=== PATIENT | female | born 1985 | race Two or more races ===

== ENCOUNTER 2023-02-23 21:02 | Outpatient (REF) | payer MEDICAID, SELFPAY ==
[2023-02-27 17:07] LABS: HPV Aptima Negative (Negative); Pap IG (Image Guided) Note (.)
== END 2023-02-23 21:03 | disposition home or self-care (01) ==
LOC: LAB 21:02
PROVIDERS: Visit Provider Obstetrics & Gynecology
DX: R87.610 Atypical squamous cells of undetermined significance on cytologic smear of cervix (ASC-US) (principal)
CPT/HCPCS: 87624

== ENCOUNTER 2023-08-31 20:19 | Outpatient (REF) | payer MEDICAID, SELFPAY ==
[2023-09-04 11:10] LABS: Age Gdln ACOG Testing Note (.); HPV Aptima Negative (Negative); IGP, Aptima HPV, rfx 16/18,45 Note (.)
== END 2023-08-31 20:20 | disposition home or self-care (01) ==
LOC: LAB 20:19
PROVIDERS: Visit Provider Obstetrics & Gynecology
DX: Z01.419 Encounter for gynecological examination (general) (routine) without abnormal findings (principal)
CPT/HCPCS: 87624; G0145

== ENCOUNTER 2024-02-29 20:30 | Outpatient (REF) | payer MEDICAID, SELFPAY ==
--- OUTSIDE RECORDS SUMMARY | 2024-02-29 20:33 | XMS_ITS | CCD ---
Author Organization [facility] Inform ion [facility] Care Team Providers Care Small Engine Trainer Name Role Phone JULIETA ., DR BROWN Admitting Unavailable JULIETA ., DR BROWN Attending Unavailable NADERER, DR MELISSA Mitchell Primary Care Unavailable JULIETA ., DR BROWN Consulting Unavailable NADERER, DR MELISSA Mitchell Admitting Unavailable NADERER, DR MELISSA Mitchell Attending Unavailable NADERER, DR MELISSA Mitchell Primary Care Unavailable NADERER, DR MELISSA Mitchell Consulting Unavailable JULIETA, KEVIN Attending Unavailable JULIETA, KEVIN Attending Unavailable Problems Problem Classification Problem Date Documented Da te Episodic/Chronic Other screening for suspected conditions (not mental disorders or infectious disease) (4 sources) Encounter for screening for malignant neoplasm of cervix; Translations: [ENC SCREENING MALIG NEOPLASM CERV] Onset: 08-25-2022 Episodic Results Test Name Value Interpretation Reference Range Facility CBC AUTO DIFFon 10-17-2022 BASO # 0.0 103/ul Normal 0.0-0.1 [facility] Comment on above: Performed By: #### C BC #### [facility] [address] [address] [address] Tal Harley Basophils/100 WBC (Bld) 0.6 % Normal 0.2-2.0 [facility] Comment on above: Performed By: #### C BC #### [facility] [address] [address] [address] Tal Harley EO # 0.0 103/ul Normal 0.0-0.7 [facility] Comment on above: Performed By: #### C BC #### [facility] [address] [address] [address] Tal Harley Eosinophils/100 WBC (Bld) 0.9 % Normal 0.9-7.0 [facility] Comment on above: Performed By: #### C BC #### [facility] [address] [place] [address] Dr. Tal Harley Erythrocyte distribution width (RBC) [Ratio] 12.2 % Normal 11.0-15.0 [facility] Comment on above: Performed By: #### C BC #### [facility] [address] [place] [address] Dr. Tal Harley Hematocrit (Bld) [Volume fraction] 42.3 % Normal 36.0-48.0 [facility] Comment on above: Performed By: #### C BC #### [facility] [address] [place] [address] Dr. Tal Harley Hemoglobin (Bld) [Mass/Vol] 14.0 g/dL Normal 12.0-16.0 [facility] Comment on above: Performed By: #### C BC #### [facility] [address] [place] [address] Dr. Tal Harley IG # 0.01 10e3/ul Normal 0.00-0.03 [facility] Comment on above: Performed By: #### C BC #### [facility] [address] [place] [address] Dr. Tal Harley IG % 0.2 % Normal 0.0-0.5 [facility] Comment on above: Performed By: #### C BC #### [facility] [address] [place] [address] Dr. Tal Harley LYMPH # 1.7 103/ul Normal 1.2-3.8 [facility] Comment on above: Performed By: #### C BC #### [facility] [address] [place] [address] Dr. Tal Harley Lymphocytes/100 WBC (Bld) 36.2 % Normal 20.5-60.0 [facility] Comment on above: Performed By: #### C BC #### [facility] [address] [place] [address] Dr. Tal Harley MANUAL DIFF REQ NO Normal [facility] Comment on above: Performed By: #### C BC #### [facility] [address] [place] [address] Dr. Tal Harley MCH (RBC) [Entitic mass] 31.7 pg Normal 26.7-34.0 [facility] Comment on above: Performed By: #### C BC #### [facility] [address] [place] [address] Dr. Tal Harley MCHC (RBC) [Mass/Vol] 33.1 g/dL Normal 29.9-35.2 [facility] Comment on above: Performed By: #### C BC #### [facility] [address] [place] [address] Dr. Tal Harley MCV (RBC) [Entitic vol] 95.7 fL Normal 81.0-99.0 [facility] Comment on above: Performed By: #### C BC #### [facility] [address] [place] [address] Dr. Tal Harley MONO # 0.4 103/ul Normal 0.3-0.8 [facility] Comment on above: Performed By: #### C BC #### [facility] [address] [place] [address] Dr. Tal Harley Monocytes/100 WBC (Bld) 8.9 % Normal 1.7-12.0 [facility] Comment on above: Performed By: #### C BC #### [facility] [address] [place] [address] Dr. Tal Harley NEUT # 2.5 103/ul Normal 1.4-6.5 [facility] Comment on above: Performed By: #### C BC #### [facility] [address] [place] [address] Dr. Tal Harley Neutrophils/100 WBC (Bld) 53.2 % Normal 43.0-75.0 [facility] Comment on above: Performed By: #### C BC #### [facility] [address] [place] [address] Dr. Tal Harley Platelet mean volume (Bld) [Entitic vol] 10.7 fL Normal 9.5-13.5 [facility] Comment on above: Performed By: #### C BC #### [facility] [address] [address] [address] Tal Harley PLT 236 103/ul Normal 150-450 [facility] Comment on above: Performed By: #### C BC #### [facility] [address] [address] [address] Tal Harley RBC 4.42 106/ul Normal 4.20-5.40 [facility] Comment on above: Performed By: #### C BC #### [facility] [address] [place] [address] Dr. Tal Harley WBC 4.7 103/ul Normal 4.0-11.0 [facility] Comment on above: Performed By: #### C BC #### [facility] [address] [place] [address] Dr. Tal Harley GLYCOHEMOGLOBIN A1Con 2022 ADA RECOMMENDATION SEE BELOW Normal [facility] Comment on above: Result Comment: ADA RECOMMENDED LIMIT 4.0 - 6.0 ADA THERAPEUTIC TARGET < 7.0 ACTION SUGGESTED > 7.0 Performed By: #### A 1C #### [facility] [address] [place] [address] Dr. Tal Harley Glucose [Mass/Vol] 94 mg/dL Normal [facility] Comment on above: Performed By: #### A 1C #### [facility] [address] [place] [address] Dr. Tal Harley HbA1c (Bld) [Mass fraction] 4.9 % Normal 4.5-6.2 [facility] Comment on above: Performed By: #### A 1C #### [facility] [address] [place] [address] Dr. Tal Harley LIPID PROFILEon 10-17-2022 CHOL-HDL RATIO NORM SEE BELOW Normal [facility] Comment on above: Result Comment: 3.3 - 4.4 LOW RISK 4.4 - 7.1 AVERAGE RISK 7.1 - 11.0 MODERATE RISK >11.0 HIGH RISK Performed By: #### L IVER, LIPID, BMP, TSH #### [facility] [address] [place], [place] [id number] Dr. Tal Harley Cholesterol [Mass/Vol] 240 mg/dL Critically high <=200 [facility] Comment on above: Performed By: #### L IVER, LIPID, BMP, TSH #### [facility] [address] [address] [address] Tal Harley Cholesterol in HDL [Mass/Vol] 113 mg/dL Critically high 40-60 [facility] Comment on above: Performed By: #### L IVER, LIPID, BMP, TSH #### [facility] [address] [address] [address] Tal Harley Cholesterol in LDL [Mass/Vol] 114.4 mg/dL Normal [facility] Comment on above: Performed By: #### L IVER, LIPID, BMP, TSH #### [facility] [address] [address] [address] Tal Harley Cholesterol.total/Ch olesterol in HDL [Mass ratio] 2.1 {ratio} Normal [facility] Comment on above: Performed By: #### L IVER, LIPID, BMP, TSH #### [facility] [address] [address] [address] Tal Harley HDL NORMAL > or = 60 mg/dl - LO W CARDIOVASCULAR RISK <40 mg/dl - HIGH CARDIOVASCULAR RISK Normal [facility] Comment on above: Performed By: #### L IVER, LIPID, BMP, TSH #### [facility] [address] [address] [address] Tal Harley LDL CALC NORMAL SEE BELOW Normal [facility] Comment on above: Result Comment: <100 mg/dl OPTIMAL 100 - 129 mg/dl NEAR OR ABOVE OPTIMAL 130 - 159 mg/dl BORDERLINE HIGH 160 - 189 mg/dl HIGH >190 mg/dl VERY HIGH Performed By: #### L IVER, LIPID, BMP, TSH #### [facility] [address] [address] [address] Tal Harley Triglyceride [Mass/Vol] 63 mg/dL Normal <=150 [facility] Comment on above: Performed By: #### L IVER, LIPID, BMP, TSH #### [facility] [address] [address] [address] Tal Harley VLDL CALC 12.6 mg/dL Normal [facility] Comment on above: Performed By: #### L IVER, LIPID, BMP, TSH #### [facility] [address] [address] [address] Tal Harley LIVER PROFILEon 10-17-2022 Albumin [Mass/Vol] 4.4 g/dL Normal 3.4-5.0 [facility] Comment on above: Performed By: #### L IVER, LIPID, BMP, TSH #### [facility] [address] [address] [address] Tal Harley Albumin/Globulin [Mass ratio] 1.4 {ratio} Normal [facility] Comment on above: Performed By: #### L IVER, LIPID, BMP, TSH #### [facility] [address] [place] [address] Dr. Tal Harley ALP [Catalytic activity/Vol] 63 U/L Normal 46-116 [facility] Comment on above: Performed By: #### L IVER, LIPID, BMP, TSH #### [facility] [address] [address] [address] Tal Harley ALT [Catalytic activity/Vol] 20 U/L Normal 14-59 [facility] Comment on above: Performed By: #### L IVER, LIPID, BMP, TSH #### [facility] [address] [address] [address] Tal Harley AST [Catalytic activity/Vol] 15 U/L Normal 15-37 [facility] Comment on above: Performed By: #### L IVER, LIPID, BMP, TSH #### [facility] [address] [address] [address] Tal Harley BILI, CONJUGATED 0.1 mg/dL Normal 0.0-0.2 [facility] Comment on above: Performed By: #### L IVER, LIPID, BMP, TSH #### [facility] [address] [address] [address] Tal Harley Bilirubin [Mass/Vol] 0.5 mg/dL Normal 0.2-1.0 [facility] Comment on above: Performed By: #### L IVER, LIPID, BMP, TSH #### [facility] [address] [address] [address] Tal Harley Globulin (S) [Mass/Vol] 3.2 g/dL Normal [facility] Comment on above: Performed By: #### L IVER, LIPID, BMP, TSH #### [facility] [address] [place] [address] Dr. Tal Harley Protein [Mass/Vol] 7.6 g/dL Normal 6.4-8.2 [facility] Comment on above: Performed By: #### L IVER, LIPID, BMP, TSH #### [facility] [address] [place] [address] Dr. Tal Harley PROF CHEM 8 (BAS METB)on Anion gap [Moles/Vol] 11.5 mmol/L Normal [facility] Comment on above: Performed By: #### L IVER, LIPID, BMP, TSH #### [facility] [address] [place] [address] Dr. Tal Harley Calcium [Mass/Vol] 9.1 mg/dL Normal 8.5-10.1 [facility] Comment on above: Performed By: #### L IVER, LIPID, BMP, TSH #### [facility] [address] [place] [address] Dr. Tal Harley Chloride [Moles/Vol] 102 mmol/L Normal 98-107 [facility] Comment on above: Performed By: #### L IVER, LIPID, BMP, TSH #### [facility] [address] [place] [address] Dr. Tal Harley CO2 [Moles/Vol] 27.5 mmol/L Normal 21.0-32.0 [facility] Comment on above: Performed By: #### L IVER, LIPID, BMP, TSH #### [facility] [address] [place] [address] Dr. Tal Harley Creatinine [Mass/Vol] 0.67 mg/dL Normal 0.55-1.02 [facility] Comment on above: Performed By: #### L IVER, LIPID, BMP, TSH #### [facility] [address] [address] [address] Tal Harley EGFR-AF MOROCCAN >60 Normal >=60 [facility] Comment on above: Performed By: #### L IVER, LIPID, BMP, TSH #### [facility] [address] [address] [address] Tal Harley EGFR-NON AF MOROCCAN >60 Normal >=60 [facility] Comment on above: Performed By: #### L IVER, LIPID, BMP, TSH #### [facility] [address] [address] [address] Tal Harley Glucose [Mass/Vol] 105 mg/dL Normal 74-106 [facility] Comment on above: Performed By: #### L IVER, LIPID, BMP, TSH #### [facility] [address] [place] [address] Dr. Tal Harley Potassium [Moles/Vol] 4.0 mmol/L Normal 3.5-5.1 [facility] Comment on above: Performed By: #### L IVER, LIPID, BMP, TSH #### [facility] [address] [address] [address] Tal Harley Sodium [Moles/Vol] 137 mmol/L Normal 136-145 [facility] Comment on above: Performed By: #### L IVER, LIPID, BMP, TSH #### [facility] [address] [address] [address] Tal Harley Urea nitrogen [Mass/Vol] 9.0 mg/dL Normal 7.0-18.0 [facility] Comment on above: Performed By: #### L IVER, LIPID, BMP, TSH #### [facility] [address] [address] [address] Tal Harley Urea nitrogen/Creatinine [Mass ratio] 13.4 mg/mg Normal [facility] Comment on above: Performed By: #### L IVER, LIPID, BMP, TSH #### [facility] [address] [address] [address] Tal Harley TSHon 10-17-2022 TSH 0.626 uIU/mL Normal 0.358-3.740 [facility] Comment on above: Performed By: #### L IVER, LIPID, BMP, TSH #### [facility] [address] [address] [address] Tal Harley PAP ACOG PANEL 2: 30 to 65on 09-02-2022 . . Normal [facility] Comment on above: Result Comment: Perf ormed at: [facility] Performed By: #### [id number] #### [facility] [address] [address] [address] Tal Harley Age Gdln ACOG Testing 30-65 Normal [facility] Comment on above: Performed By: #### [id number] #### [facility] [address] [place] [address] Dr. Tal Harley DIAGNOSIS: Comment Abnormal [facility] Comment on above: Result Comment: EPIT HELIAL CELL ABNORMALITY. ATYPICAL SQUAMOUS CELLS OF UNDETERMINED SIGNIFICANCE (ASC-US). TRICHOMONAS VAGINALIS IS PRESENT. Performed at: [facility] Performed By: #### [id number] #### [facility] [address] [address] [address] Tal Harley Electronically signed by: Comment Normal [facility] Comment on above: Result Comment: Mehrdad Kendall MD (Charles), Pathologist Performed at: [facility] Performed By: #### [id number] #### [facility] [address] [address] [address] Tal Harley HPV Aptima Negative Normal Negative [facility] Comment on above: Result Comment: This nucleic acid amplification test detects fourteen high-risk HPV types (16,18,31,33,35,39,45,51,52,56,58,59,66,68) without differentiation. Performed at: =G Performed By: #### [id number] #### [facility] [address] [place] [address] Dr. Tal Harley HPV Genotype Reflex Comment Normal [facility] Comment on above: Result Comment: Crit eria not met, HPV Genotype not performed. Performed at: [facility] Performed By: #### [id number] #### [facility] [address] [place] [address] Dr. Tal Harley Methodology: Comment [facility] Comment on above: Result Comment: This liquid based ThinPrep(R) pap test was screened with the use of an image guided system. Performed at: WB Performed By: #### [id number] #### [facility] [address] [place] [address] Dr. Tal Harley Note: Comment [facility] Comment on above: Result Comment: The Pap smear is a screening test designed to aid in the detection of premalignant and malignant conditions of the uterine cervix. It is not a diagnostic procedure and should not be used as the sole means of detecting cervical cancer. Both false-positive and false-negative reports do occur. . Performed at: WB Performed By: #### [id number] #### [facility] [address] [place] [address] Dr. Tal Harley Pathologist Provided ICD10 Comment [facility] Comment on above: Result Comment: R87. 610, R87.5 Performed at: [facility] Performed By: #### [id number] #### [facility] [address] [place] [address] Dr. Tal Harley Performed by: Comment Normal [facility] Comment on above: Result Comment: Aj Obregon, Tile Fitter (ASCP) Performed at: [facility] Performed By: #### [id number] #### [facility] [address] [place] [address] Dr. Tal Harley Specimen adequacy: Comment Normal [facility] Comment on above: Result Comment: Sati sfactory for evaluation. Endocervical and/or squamous metaplastic cells (endocervical component) are present. Performed at: [facility] Performed By: #### [id number] #### [facility] [address] [place] [address] Dr. Tal Harley Urine Cultureon 11-06-2020 Bacteria identified Cx Nom (U) Reason for Exam Urinary frequency Urine ORGANISM: Klebsiella pneumoniae (O:KLEPNE) [place] Count >100,000 Aerobic VIKTORIYA Charge (NUC86) ---- SUSCEPTIBILITY --- ORGANISM: O:YELENAPNE ANTIBIOTIC INTERPRETATION VIKTORIYA Amikacin S <16 Ampicillin R >16 Ampicillin/Sulbactam S <8/4 Aztreonam S <4 Cefazolin S <2 Cefepime S <2 Ceftazidime S <1 Ceftazidime/Avibactam S <8 Ceftriaxone S <1 Ciprofloxacin S <1 Ertapenem S <0.5 Gentamicin S <4 Levofloxacin S <2 Meropenem S <1 Nitrofurantoin I 64 Piperacillin/Tazobact am S <16 Tetracycline S <4 Tigecycline S <2 Tobramycin S <4 Trimethoprim/Sulfamet hoxazole S <2/38 S = SUSCEPTIBLE I = INTERMEDIATE R = RESISTANT BLANK = DATA NOT AVAILABLE, OR DRUG NOT ADVISABLE OR TESTED R* = RESISTANCE DUE TO EXTENDED SPECTRUM BETA-LACTAMASES ESBL = EXTENDED SPECTRUM BETA-LACTAMASE TFG = THYMIDINE-DEPENDENT STRAIN VIDA = BETA-LACTAMASE POSITIVE IB = INDUCIBLE BETA-LACTAMASE. APPEARS IN PLACE OF 'S' WITH SPECIES KNOWN TO POSSESS INDUCIBLE BETA-LACTAMASES. POTENTIALLY THEY MAY BECOME RESISTANT TO ALL B-LACTAM DRUGS. PERFORMED BY: [place] [id number] PATHOLOGIST LOGISTICS TECHNICIAN MEE RICHARD M.D[facility] Comment on above: Performed By: #### C UU #### [address] Encounters Encounter Date Encounter Type Care Provider Facility Start: 02-29-2024 End: 02-29-2024 ambulatory KEVIN JULIETA Not Available Start: 08-31-2023 End: 08-31-2023 ambulatory KEVIN JULIETA Not Available Start: 10-26-2022 Encounter for genera l adult medical examination without abnormal findings DR MELISSA US [facility] Start: 10-17-2022 End: 10-18-[address] MELISSA US Facility: Start: 10-17-2022 End: 10-18-2022 Encounter for general adult medical examination without abnormal findings DR MELISSA US Facility:[facility] Start: 08-25-2022 End: 08-25-[address] KEVIN RENDON . Facility:[facility] Payers Date Payer Category Payer Medicaid [id number] 1985 Unknown [id number] 2.16.84 [id number] 1985 Unknown [id number] 2.16.84 [id number] 1985 Unknown [id number] 2.16.84 [id number] 1985 Unknown [id number] 2.16.84 [id number] Summary Purpose Family History No Family History Records FoundNo Family History Records FoundNo Family History Records Found Advance Directives No Advanced Directives Records FoundNo Advanced Directives Records FoundNo Advanced Directives Records Found Additional Source Comments INFORMATION SOURCE (unrecogn ized section and content) DATE CREATED AUTHOR 11/12/2020 [facility] DATE CREATED AUTHOR AUTHOR'S ORGANIZ ATION 10/26/2022 [facility] DATE CREATED AUTHOR AUTHOR'S ORGANIZ ATION 02/29/2024 [facility] EPIC FOR RECORDS PERTAINING TO PATIENTS WHO ARE OR HAVE BEEN ENROLLED IN A CHEMICAL DEPENDENCY/SUBSTANCEABUSE PROGRAM, SOME INFORMATION MAY BE OMITTED. This clinical summary was aggregated from multiple sources. Caution should be exercised in using it in the provision of clinical care. This summary normalizes information from multiple sources, and as a consequence, information in this document may materially change the coding, format and clinical context of patient data. In addition, data may be omitted in some cases. CLINICAL DECISIONS SHOULD BE BASED ON THE PRIMARY CLINICAL RECORDS. [employer] provides no warranty or guarantee of the accuracy or completeness of information in this document.
[2024-03-04 17:10] LABS: Age Gdln ACOG Testing Note (.); HPV Aptima Negative (Negative); IGP, Aptima HPV, rfx 16/18,45 Note (.)
== END 2024-02-29 20:31 | disposition home or self-care (01) ==
LOC: LAB 20:30
PROVIDERS: Visit Provider Obstetrics & Gynecology
DX: Z01.419 Encounter for gynecological examination (general) (routine) without abnormal findings (principal)
CPT/HCPCS: 88175

== ENCOUNTER 2024-06-01 13:58 | Outpatient (OUT) | payer MEDICAID, SELFPAY ==
--- OUTSIDE RECORDS SUMMARY | 2024-06-01 14:24 | XMS_ITS | CCD ---
Author Organization [facility] Inform ion [facility] Care Team Providers Care Hand Upper And Bottom Lacer Name Role Phone JULIETA ., DR BROWN [...] 10-17-2022 BASO # 0.0 103/ul Normal 0.0-0.1 [facility] Comment on above: Performed By: #### C BC #### [facility] [address] [address] [address] Tal Harley Basophils/100 WBC (Bld) 0.6 % Normal 0.2-2.0 [facility] Comment on above: Performed By: #### C BC #### [facility] [address] [address] [address] Tal Harley EO # 0.0 103/ul Normal 0.0-0.7 [facility] Comment on above: Performed By: #### C BC #### [facility] [address] [address] [address] Tal Harley Eosinophils/100 WBC (Bld) 0.9 % Normal 0.9-7.0 [facility] Comment on above: Performed By: #### C BC #### [facility] [address] [place] [address] Dr. Tal Harley Erythrocyte distribution width (RBC) [Ratio] 12.2 % Normal 11.0-15.0 [facility] Comment on above: Performed By: #### C BC #### [facility] [address] [place] [address] Dr. Tal Harley Hematocrit (Bld) [Volume fraction] 42.3 % Normal 36.0-48.0 [facility] Comment on above: Performed By: #### C BC #### [facility] [address] [place] [address] Dr. Tal Harley Hemoglobin (Bld) [Mass/Vol] 14.0 g/dL Normal 12.0-16.0 [facility] Comment on above: Performed By: #### C BC #### [facility] [address] [place] [address] Dr. Tal Harley IG # 0.01 10e3/ul Normal 0.00-0.03 [facility] Comment on above: Performed By: #### C BC #### [facility] [address] [place] [address] Dr. Tal Harley IG % 0.2 % Normal 0.0-0.5 [facility] Comment on above: Performed By: #### C BC #### [facility] [address] [place] [address] Dr. Tal Harley LYMPH # 1.7 103/ul Normal 1.2-3.8 [facility] Comment on above: Performed By: #### C BC #### [facility] [address] [place] [address] Dr. Tal Harley Lymphocytes/100 WBC (Bld) 36.2 % Normal 20.5-60.0 [facility] Comment on above: Performed By: #### C BC #### [facility] [address] [place] [address] Dr. Tal Harley MANUAL DIFF REQ NO Normal [facility] Comment on above: Performed By: #### C BC #### [facility] [address] [place] [address] Dr. Tal Harley MCH (RBC) [Entitic mass] 31.7 pg Normal 26.7-34.0 [facility] Comment on above: Performed By: #### C BC #### [facility] [address] [place] [address] Dr. Tal Harley MCHC (RBC) [Mass/Vol] 33.1 g/dL Normal 29.9-35.2 [facility] Comment on above: Performed By: #### C BC #### [facility] [address] [place] [address] Dr. Tal Harley MCV (RBC) [Entitic vol] 95.7 fL Normal 81.0-99.0 [facility] Comment on above: Performed By: #### C BC #### [facility] [address] [place] [address] Dr. Tal Harley MONO # 0.4 103/ul Normal 0.3-0.8 [facility] Comment on above: Performed By: #### C BC #### [facility] [address] [place] [address] Dr. Tal Harley Monocytes/100 WBC (Bld) 8.9 % Normal 1.7-12.0 [facility] Comment on above: Performed By: #### C BC #### [facility] [address] [place] [address] Dr. Tal Harley NEUT # 2.5 103/ul Normal 1.4-6.5 [facility] Comment on above: Performed By: #### C BC #### [facility] [address] [place] [address] Dr. Tal Harley Neutrophils/100 WBC (Bld) 53.2 % Normal 43.0-75.0 [facility] Comment on above: Performed By: #### C BC #### [facility] [address] [place] [address] Dr. Tal Harley Platelet mean volume (Bld) [Entitic vol] 10.7 fL Normal 9.5-13.5 [facility] Comment on above: Performed By: #### C BC #### [facility] [address] [address] [address] Tal Harley PLT 236 103/ul Normal 150-450 [facility] Comment on above: Performed By: #### C BC #### [facility] [address] [address] [address] Tal Harley RBC 4.42 106/ul Normal 4.20-5.40 [facility] Comment on above: Performed By: #### C BC #### [facility] [address] [place] [address] Dr. Tal Harley WBC 4.7 103/ul Normal 4.0-11.0 [facility] Comment on above: Performed By: #### C BC #### [facility] [address] [place] [address] Dr. Tal Harley GLYCOHEMOGLOBIN A1Con 2022 ADA RECOMMENDATION SEE BELOW Normal [facility] Comment on above: Result Comment: ADA RECOMMENDED LIMIT 4.0 - 6.0 ADA THERAPEUTIC TARGET < 7.0 ACTION SUGGESTED > 7.0 Performed By: #### A 1C #### [facility] [address] [place] [address] Dr. Tal Harley Glucose [Mass/Vol] 94 mg/dL Normal [facility] Comment on above: Performed By: #### A 1C #### [facility] [address] [place] [address] Dr. Tal Harley HbA1c (Bld) [Mass fraction] 4.9 % Normal 4.5-6.2 [facility] Comment on above: Performed By: #### A 1C #### [facility] [address] [place] [address] Dr. Tal Harley LIPID PROFILEon 10-17-2022 CHOL-HDL RATIO NORM SEE BELOW Normal [facility] Comment on above: Result Comment: 3.3 - 4.4 LOW RISK 4.4 - 7.1 AVERAGE RISK 7.1 - 11.0 MODERATE RISK >11.0 HIGH RISK Performed By: #### L IVER, LIPID, BMP, TSH #### [facility] [address] [place], [place] [id number] Dr. Tal Harley Cholesterol [Mass/Vol] 240 mg/dL Critically high <=200 [facility] Comment on above: Performed By: #### L IVER, LIPID, BMP, TSH #### [facility] [address] [address] [address] Tal Harley Cholesterol in HDL [Mass/Vol] 113 mg/dL Critically high 40-60 [facility] Comment on above: Performed By: #### L IVER, LIPID, BMP, TSH #### [facility] [address] [address] [address] Tal Harley Cholesterol in LDL [Mass/Vol] 114.4 mg/dL Normal [facility] Comment on above: Performed By: #### L IVER, LIPID, BMP, TSH #### [facility] [address] [address] [address] Tal Harley Cholesterol.total/Ch olesterol in HDL [Mass ratio] 2.1 {ratio} Normal [facility] Comment on above: Performed By: #### L IVER, LIPID, BMP, TSH #### [facility] [address] [address] [address] Tal Harley HDL NORMAL > or = 60 mg/dl - LO W CARDIOVASCULAR RISK <40 mg/dl - HIGH CARDIOVASCULAR RISK Normal [facility] Comment on above: Performed By: #### L IVER, LIPID, BMP, TSH #### [facility] [address] [address] [address] Tal Harley LDL CALC NORMAL SEE BELOW Normal [facility] Comment on above: Result Comment: <100 mg/dl OPTIMAL 100 - 129 mg/dl NEAR OR ABOVE OPTIMAL 130 - 159 mg/dl BORDERLINE HIGH 160 - 189 mg/dl HIGH >190 mg/dl VERY HIGH Performed By: #### L IVER, LIPID, BMP, TSH #### [facility] [address] [address] [address] Tal Harley Triglyceride [Mass/Vol] 63 mg/dL Normal <=150 [facility] Comment on above: Performed By: #### L IVER, LIPID, BMP, TSH #### [facility] [address] [address] [address] Tal Harley VLDL CALC 12.6 mg/dL Normal [facility] Comment on above: Performed By: #### L IVER, LIPID, BMP, TSH #### [facility] [address] [address] [address] Tal Harley LIVER PROFILEon 10-17-2022 Albumin [Mass/Vol] 4.4 g/dL Normal 3.4-5.[address] [facility] Comment on above: Performed By: #### L IVER, LIPID, BMP, TSH #### [facility] [address] [address] [address] Tal Harley Albumin/Globulin [Mass ratio] 1.4 {ratio} Normal [facility] Comment on above: Performed By: #### L IVER, LIPID, BMP, TSH #### [facility] [address] [place] [address] Dr. Tal Harley ALP [Catalytic activity/Vol] 63 U/L Normal 46-116 [facility] Comment on above: Performed By: #### L IVER, LIPID, BMP, TSH #### [facility] [address] [address] [address] Tal Harley ALT [Catalytic activity/Vol] 20 U/L Normal 14-59 [facility] Comment on above: Performed By: #### L IVER, LIPID, BMP, TSH #### [facility] [address] [address] [address] Tal Harley AST [Catalytic activity/Vol] 15 U/L Normal 15-37 [facility] Comment on above: Performed By: #### L IVER, LIPID, BMP, TSH #### [facility] [address] [address] [address] Tal Harley BILI, CONJUGATED 0.1 mg/dL Normal 0.0-0.2 [facility] Comment on above: Performed By: #### L IVER, LIPID, BMP, TSH #### [facility] [address] [address] [address] Tal Harley Bilirubin [Mass/Vol] 0.5 mg/dL Normal 0.2-1.0 [facility] Comment on above: Performed By: #### L IVER, LIPID, BMP, TSH #### [facility] [address] [address] [address] Tal Harley Globulin (S) [Mass/Vol] 3.2 g/dL Normal [facility] Comment on above: Performed By: #### L IVER, LIPID, BMP, TSH #### [facility] [address] [place] [address] Dr. Tal Harley Protein [Mass/Vol] 7.6 g/dL Normal 6.4-8.2 [facility] Comment on above: Performed By: #### L IVER, LIPID, BMP, TSH #### [facility] [address] [place] [address] Dr. Tal Harley PROF CHEM 8 (BAS METB)on Anion gap [Moles/Vol] 11.5 mmol/L Normal [facility] Comment on above: Performed By: #### L IVER, LIPID, BMP, TSH #### [facility] [address] [place] [address] Dr. Tal Harley Calcium [Mass/Vol] 9.1 mg/dL Normal 8.5-10.1 [facility] Comment on above: Performed By: #### L IVER, LIPID, BMP, TSH #### [facility] [address] [place] [address] Dr. Tal Harley Chloride [Moles/Vol] 102 mmol/L Normal 98-107 [facility] Comment on above: Performed By: #### L IVER, LIPID, BMP, TSH #### [facility] [address] [place] [address] Dr. Tal Harley CO2 [Moles/Vol] 27.5 mmol/L Normal 21.0-32.0 [facility] Comment on above: Performed By: #### L IVER, LIPID, BMP, TSH #### [facility] [address] [place] [address] Dr. Tal Harley Creatinine [Mass/Vol] 0.67 mg/dL Normal 0.55-1.02 [facility] Comment on above: Performed By: #### L IVER, LIPID, BMP, TSH #### [facility] [address] [address] [address] Tal Harley EGFR-AF ESTONIAN >60 Normal >=60 [facility] Comment on above: Performed By: #### L IVER, LIPID, BMP, TSH #### [facility] [address] [address] [address] Tal Harley EGFR-NON AF ESTONIAN >60 Normal >=60 [facility] Comment on above: Performed By: #### L IVER, LIPID, BMP, TSH #### [facility] [address] [address] [address] Tal Harley Glucose [Mass/Vol] 105 mg/dL Normal 74-[address] [facility] Comment on above: Performed By: #### L IVER, LIPID, BMP, TSH #### [facility] [address] [place] [address] Dr. Tal Harley Potassium [Moles/Vol] 4.0 mmol/L Normal 3.5-5.1 [facility] Comment on above: Performed By: #### L IVER, LIPID, BMP, TSH #### [facility] [address] [address] [address] Tal Harley Sodium [Moles/Vol] 137 mmol/L Normal 136-[address] [facility] Comment on above: Performed By: #### L IVER, LIPID, BMP, TSH #### [facility] [address] [address] [address] Tal Harley Urea nitrogen [Mass/Vol] 9.0 mg/dL Normal 7.0-18.0 [facility] Comment on above: Performed By: #### L IVER, LIPID, BMP, TSH #### [facility] [address] [address] [address] Tal Harley Urea nitrogen/Creatinine [Mass ratio] 13.4 mg/mg Normal [facility] Comment on above: Performed By: #### L IVER, LIPID, BMP, TSH #### [facility] [address] [address] [address] Tal Harley TSHon 10-17-2022 TSH 0.626 uIU/mL Normal 0.358-3.740 [facility] Comment on above: Performed By: #### L IVER, LIPID, BMP, TSH #### [facility] [address] [address] [address] Tal Harley PAP ACOG PANEL 2: 30 to 65on 09-02-2022 . . Normal [facility] Comment on above: Result Comment: Perf ormed at: [facility] Performed By: #### [id number] #### [facility] [address] [address] [address] Tal Harley Age Gdln ACOG Testing 30-65 Normal [facility] Comment on above: Performed By: #### [id number] #### [facility] [address] [place] [address] Dr. Tal Harley DIAGNOSIS: Comment Abnormal [facility] Comment on above: Result Comment: EPIT HELIAL CELL ABNORMALITY. ATYPICAL SQUAMOUS CELLS OF UNDETERMINED SIGNIFICANCE (ASC-US). TRICHOMONAS VAGINALIS IS PRESENT. Performed at: [facility] Performed By: #### [id number] #### [facility] [address] [address] [address] Tal Harley Electronically signed by: Comment Normal [facility] Comment on above: Result Comment: Mehrdad Kendall MD (Charles), Pathologist Performed at: [facility] Performed By: #### [id number] #### [facility] [address] [address] [address] Tal Harley HPV Aptima Negative Normal Negative [facility] Comment on above: Result Comment: This nucleic acid amplification test detects fourteen high-risk HPV types (16,18,31,33,35,39,45,51,52,56,58,59,66,68) without differentiation. Performed at: =G Performed By: #### [id number] #### [facility] [address] [place] [address] Dr. Tal Harley HPV Genotype Reflex Comment Normal [facility] Comment on above: Result Comment: Crit eria not met, HPV Genotype not performed. Performed at: [facility] Performed By: #### [id number] #### [facility] [address] [place] [address] Dr. Tal Harley Methodology: Comment [facility] Comment on above: Result Comment: This liquid based ThinPrep(R) pap test was screened with the use of an image guided system. Performed at: [facility] Performed By: #### [id number] #### [facility] [address] [place] [address] Dr. Tal Harley Note: Comment [facility] Comment on above: Result Comment: The Pap smear is a screening test designed to aid in the detection of premalignant and malignant conditions of the uterine cervix. It is not a diagnostic procedure and should not be used as the sole means of detecting cervical cancer. Both false-positive and false-negative reports do occur. . Performed at: WB Performed By: #### [id number] #### [facility] [address] [place] [address] Dr. Tal Harley Pathologist Provided ICD10 Comment [facility] Comment on above: Result Comment: R87. 610, R87.5 Performed at: [facility] Performed By: #### [id number] #### [facility] [address] [place] [address] Dr. Tal Harley Performed by: Comment Normal [facility] Comment on above: Result Comment: Aj Obregon, Quarry Supervisor [employer] (ASCP) Performed at: [facility] Performed By: #### [id number] #### [facility] [address] [place] [address] Dr. Tal Harley Specimen adequacy: Comment Normal [facility] Comment on above: Result Comment: Sati sfactory for evaluation. Endocervical and/or squamous metaplastic cells (endocervical component) are present. Performed at: [facility] Performed By: #### 4 [id number] #### [facility] [address] [place] [address] Dr. Tal Harley Urine Cultureon 11-06-2020 Bacteria identified Cx Nom (U) Reason for Exam Urinary frequency Urine ORGANISM: Klebsiella pneumoniae (O:KLEPNE) Mobile Count >100,000 Aerobic VIKTORIYA Charge (NUC86) ---- [...] RESISTANT TO ALL B-LACTAM DRUGS. PERFORMED BY: [place] [address] PATHOLOGIST RADIATION TECHNICIAN MEE RICHARD M.D. [facility] Comment on above: Performed By: #### C UU #### [address] Encounters Encounter Date Encounter Type Care Provider Facility Start: 02-29-2024 End: 02-29-2024 ambulatory KEVIN JULIETA Not Available Start: 08-31-2023 End: 08-31-2023 ambulatory KEVIN JULIETA Not Available Start: 10-26-2022 Encounter for genera l adult medical examination without abnormal findings DR MELISSA US [facility] Start: 10-17-2022 End: 10-18-[address] MELISSA US Facility: Start: 10-17-2022 End: 10-18-2022 Encounter for general adult medical examination without abnormal findings DR MELISSA US Facility:[facility] Start: 08-25-2022 End: 08-25-[address] KEVIN RENDON . Facility:[facility] Payers Date Payer Category Payer Medicaid [id number] 1985 Unknown [id number] [id number] 1985 Unknown [id number] [id number] 1985 Unknown [id number] [id number] 1985 Unknown [id number] [id number] Summary Purpose Family History No Family History Records FoundNo Family History Records FoundNo Family History Records Found Advance Directives No Advanced Directives Records FoundNo Advanced Directives Records FoundNo Advanced Directives Records Found Additional Source Comments INFORMATION SOURCE (unrecogn ized section and content) DATE CREATED AUTHOR 11/12/2020 [facility] DATE CREATED AUTHOR AUTHOR'S ORGANIZ ATION 10/26/2022 [facility] DATE CREATED AUTHOR AUTHOR'S ORGANIZ ATION 02/29/2024 [facility] EPIC FOR RECORDS PERTAINING TO PATIENTS [...] BE BASED ON THE PRIMARY CLINICAL RECORDS. [employer] provides no warranty or guarantee of the accuracy or completeness of information in this document.
[2024-06-01 14:26] LABS: Basophils Percent Auto 0.8 % (0.2-2.0); Eosinophils Absolute Auto 0.1 10^3/uL (0.0-0.7); Hematocrit 39.8 % (36.0-48.0); Hemoglobin 13.2 g/dL (12.0-16.0); Immature Granulocytes Abs Auto 0.01 10^3/uL (0.00-0.03); Immature Granulocytes Pct Auto 0.2 % (0.0-0.5); Lymphocytes Absolute Auto 1.7 10^3/uL (1.2-3.8); Lymphocytes Percent Auto 35.8 % (20.5-60.0); Mean Corpuscular HGB Conc 33.2 g/dL (29.9-35.2); Mean Corpuscular Volume 96.6 fL (81.0-99.0); Mean Platelet Volume 10.4 fL (9.5-13.5); Monocytes Absolute Auto 0.4 10^3/uL (0.3-0.8); Monocytes Percent Auto 8.4 % (1.7-12.0); Neutrophils Absolute Auto 2.6 10^3/uL (1.4-6.5); Neutrophils Percent Auto 53.8 % (43.0-75.0); Platelet Count 228 10^3/uL (150-450); Red Blood Count 4.12 10^6/uL (4.20-5.40); Red Cell Distribution Width 12.1 % (11.0-15.0); White Blood Count 4.9 10^3/uL (4.0-11.0)
[2024-06-01 14:38] LABS: Estimated Average Glucose 108 mg/dL; Glycohemoglobin A1C 5.4 % (4.5-6.2)
[2024-06-01 15:10] LABS: Alanine Aminotransferase 17 U/L (14-59); Albumin Globulin Ratio 1.3; Alkaline Phosphatase 60 U/L (46-116); Aspartate Amino Transferase 16 U/L (15-37); BUN Creatinine Ratio 10.4; Bilirubin Direct 0.1 mg/dL (0.0-0.2); Bilirubin Total 0.6 mg/dL (0.2-1.0); Calcium 9.5 mg/dL (8.5-10.1); Carbon Dioxide 25.8 mmol/L (21.0-32.0); Chloride 105 mmol/L (98-107); Cholesterol 228 mg/dL (<=200); Estimated GFR (African America >60 (>=60 mL/min/1.73m^2); Estimated GFR (Non-African Ame >60 (>=60 mL/min/1.73m^2); Globulin 3.2 g/dL; Glucose 88 mg/dL (74-106); HDL Cholesterol 114 mg/dL (40-60); Potassium 3.8 mmol/L (3.5-5.1); Sodium 141 mmol/L (136-145); Thyroid Stimulating Hormone 0.825 uIU/mL (0.358-3.740); Total Protein 7.2 g/dL (6.4-8.2); Triglycerides 54 mg/dL (<=150); VLDL CHOLESTEROL 10.8 mg/dL
== END 2024-06-01 13:59 | disposition home or self-care (01) ==
LOC: LAB 14:01
PROVIDERS: PCP Family Medicine; Visit Provider Family Medicine
DX: Z00.00 Encounter for general adult medical examination without abnormal findings (principal)
CPT/HCPCS: 36415; 80048; 80061; 80076; 83036; 84443; 85025

== ENCOUNTER 2025-03-01 14:39 | Outpatient (REF) | payer MEDICAID, SELFPAY ==
--- OUTSIDE RECORDS SUMMARY | 2025-03-01 11:00 | XMS_ITS | Encounter Summary ---
Author Organization [facility] Address [address] [place] [address] Care Team Providers Care Tire Layer Name Role Phone Gucci Arthur MD Primary Care Provider [phone] Reason for Visit * Reason Comments Well Women Visit Encounter Details Date Type Department Care Team (Late st Contact Info) Description 03/01/2025 11:00 AM EDT Office Visit [facility] [address] [place] [id number] Scout Berman DO [address] [place] Son, [facility] Well woman exam with routine gynecological exam; Folliculitis Social History Tobacco Use Types Packs/Day Years Used Date Smoking Tobacco: Former Cigarettes Smokeless Tobacco: Never Alcohol Use Standard Drinks/Week Comments Yes 3 (1 standard drink = 0.6 oz pur e alcohol) Occasional alcohol use B1300 Health Literacy Answer Date Recor ded How often do you need to hav e someone help you when you read instructions, pamphlets, or other written material from your doctor or pharmacy? Never 06/01/2024 Social Connection and Isolat ion Panel [NHANES] Answer Date Recorded In a typical week, how many times do you talk on the phone with family, friends, or neighbors? More than three times a week 06/01/2024 How often do you get togethe r with friends or relatives? Patient declined 06/01/2024 How often do you attend [facility] or latter-day services? Never 06/01/2024 Do you belong to any clubs o r organizations such as spiritism groups, unions, fraternal or athletic groups, or school groups? No 06/01/2024 How often do you attend meet ings of the clubs or organizations you belong to? Never 06/01/2024 Are you , , di vorced, , never , or living with a partner? Never 06/01/2024 AUDIT-C Answer Date Recorded Q1: How often do you have a drink containing alc ohol? 2-4 times a month 06/01/2024 Q2: How many drinks containi ng alcohol do you have on a typical day when you are drinking? 1 or 2 06/01/2024 Q3: How often do you have si x or more drinks on one occasion? Never 06/01/2024 Overall Financial Resource Strain (CARDIA) Answe r Date Recorded How hard is it for you to pa y for the very basics like food, housing, medical care, and heating? Patient declined 06/01/2024 [facility] - Occupational Stress Questionnaire Answer Date Recorded Do you feel stress - tense, restless, nervous, or anxious, or unable to sleep at night because your mind is troubled all the time - these days? Very much 06/01/2024 Exercise Vital Sign Answer Date Recorde d On average, how many days pe r week do you engage in moderate to strenuous exercise (like a brisk walk)? 5 days 06/01/2024 On average, how many minutes do you engage in exercise at this level? 20 min 06/01/2024 Hunger Vital Sign Answer Date Recorded Within the past 12 months, y ou worried that your food would run out before you got the money to buy more. Patient declined Within the past 12 months, t he food you bought just didn't last and you didn't have money to get more. Patient declined PRAPARE - Transportation Answer Date Re corded Lack of Transportation (Medical) Not on file 06/01/2024 In the past 12 months, has l ack of transportation kept you from meetings, work, or from getting things needed for daily living? No 06/01/2024 Housing Stability Vital Sign Answer Cassius e Recorded In the last 12 months, was t here a time when you were not able to pay the mortgage or rent on time? Yes 06/01/2024 Number of Times Moved in the Last Year Not on fi le 06/01/2024 At any time in the past 12 m [facility], were you homeless or living in a retirement (including now)? No 06/01/2024 Comments No Sex and Gender Information Value Date Recorded Sex Assigned at Female 02/16/2023 8:45 AM EDT Legal Sex Female 11:47 PM EDT Gender Identity Female 02/16/2023 8:45 AM EDT Sexual Orientation Not on file documented as of this encounter Last Filed Vital Signs Vital Sign Reading Time Taken Comments Blood Pressure 100/68 03/01/2025 10:55 AM EDT Pulse - - Temperature - - Respiratory Rate - - Oxygen Saturation - - Inhaled Oxygen Concentration - - Weight 63.1 kg (139 lb 1.9 oz) 03/01/2025 10:55 AM EDT Height - - Body Mass Index 25.45 07/15/2024 10:33 AM EST documented in this encounter Plan of Treatment Upcoming Encounters Date Type Department Care Team (Late st Contact Info) Description 03/06/2026 9:00 AM EDT Procedure Visit [facility] [address] [place] [address] Scout Berman DO [address] [place], [place] [id number] Scheduled Orders Name Type Priority Associated Diagnoses Orde r Schedule Pap Smear Pathology and Cytology Routine Well woman exam with routine gynecological exam Ordered: 03/01/2025 HPV DNA probe, amplified Microbiology Routine Well woman exam with routine gynecological exam Ordered: 03/01/2025 documented as of this encounter Visit Diagnoses Diagnosis Well woman exam with routine gynecological exam Routine gynecological examination Folliculitis Other specified disease of hair and hair follicles documented in this encounter Care Teams Tire Layer Relationship Specialty Start Date End Date Gucci Arthur MD [address] [place] [address] PCP - General Family Medicine 02/23/23 documented as of this encounter
--- OUTSIDE RECORDS SUMMARY | 2025-03-01 14:42 | XMS_ITS | Encounter Summary ---
Author Organization [facility] Address [address] [place] [address] Care Team Providers Care Delicatessen Goods Stock Clerk Name Role Phone Gucci Arthur MD Primary Care Provider [phone] Encounter Details Date Type Department Care Team (Late st Contact Info) Description 02/16/2025 Orders Only [facility] [address] [place] [id number] Mary Lou JamilBrighton, [place] [address] [place] [address] Social History Tobacco Use Types Packs/Day Years [...] declined 06/01/2024 How often do you attend chur ch or restorationist services? Never 06/01/2024 Do you belong to any clubs o r organizations such as voodoo groups, unions, fraternal or athletic groups, or [...] medical care, and heating? Patient declined 06/01/2024 [facility] - Occupational Stress [...] any time in the past 12 m [facility], were you homeless or living in a residential (including now)? No 06/01/2024 Comments No Sex and Gender Information Value Date Recorded Sex Assigned at Female 02/16/2023 8:45 AM EDT Legal Sex Female 11:47 PM EDT Gender Identity Female 02/16/2023 8:45 AM EDT Sexual Orientation Not on file documented as of this encounter Plan of Treatment Upcoming Encounters Date Type Department Care Team (Late st Contact Info) Description 03/06/2026 9:00 AM EDT Procedure Visit [facility] [address] [place] [id number] Scout Berman DO [address] [place] [address] documented as of this encounter Procedures Procedure Name Priority Date/Time Associated Diagnosis Comments PAP SMEAR Routine 02/29/2024 12:00 AM EDT PAP SMEAR Routine 08/31/2023 12:00 AM EST documented in this encounter Results * Pap Smear (02/29/2024 12:00 AM EDT) Swab Cervical swab / Unknown Scout Antonella DO LAB CYTOLOGY ORDERABLES Final Re sult Performing Organization Address City/[facility]/ZIP Co de Phone Number EXTERNAL LAB * Pap Smear (08/31/2023 12:00 AM EST) Swab Cervical swab / Unknown Scout Antonella DO LAB CYTOLOGY ORDERABLES Final Re sult EXTERNAL LAB documented in this encounter Visit Diagnoses Not on filedocumented in this encounter Care Teams Delicatessen Goods Stock Clerk Relationship Specialty Start Date End Date Gucci Arthur MD [address] [place] [address] PCP - General Family Medicine 02/23/23 documented as of this encounter
--- OUTSIDE RECORDS SUMMARY | 2025-03-01 14:42 | XMS_ITS | Encounter Summary ---
Author Organization [facility] Address [address] [place] [address] Care Team Providers Care Nurse Advocate Name Role Phone Gucci Arthur MD Primary Care Provider [phone] Encounter Details Date Type Department Care Team (Late st Contact Info) Description 03/10/2023 Abstract [facility] [address] [place] [place] [address] Cait Mendez LPN [email or web address] [place] [id number] Social History Tobacco Use Types Packs/Day Years Used Date Smoking Tobacco: Former Cigarettes Smokeless Tobacco: Never Alcohol Use Standard Drinks/Week Comments Yes 0 (1 standard drink = 0.6 oz pur e alcohol) Occasional alcohol use Comments No Sex and Gender Information Value Date Recorded Sex Assigned at Female 02/16/2023 8:45 AM EDT Legal Sex Female 11:47 PM EDT Gender Identity Female 02/16/2023 8:45 AM EDT Sexual Orientation Not on file COVID-19 Exposure Response Date Recorded In the last 10 days, have yo u been in contact with someone who was confirmed or suspected to have Coronavirus/COVID-19? No / Unsure 02/23/2023 7:32 AM EDT documented as of this encounter Plan of Treatment Upcoming Encounters Date Type Department Care Team (Late st Contact Info) Description 03/06/2026 9:00 AM EDT Procedure Visit [facility] [address] [place] [address] Scout Berman DO [address] [place] [address] documented as of this encounter Visit Diagnoses Not on filedocumented in this encounter Care Teams Nurse Advocate Relationship Specialty Start Date End Date Gucci Arthur MD [address] [place] [address] PCP - General Family Medicine 02/23/23 documented as of this encounter
--- OUTSIDE RECORDS SUMMARY | 2025-03-01 14:42 | XMS_ITS | Encounter Summary ---
Author Organization [facility] Address [address] [place] [address] Care Team Providers Care Water Taxi Driver Name Role Phone Gucci Arthur MD Primary Care Provider [phone] Encounter Details Date Type Department Care Team (Late st Contact Info) Description 03/01/2025 Bamboo flowsheet [facility] [address] [place] [address] Scout Berman DO [address] [place], [facility] Social History Tobacco Use Types Packs/Day Years [...] declined 06/01/2024 How often do you attend [facility] or jain services? Never 06/01/2024 Do you belong to any clubs o r organizations such as caodaism groups, unions, fraternal or athletic groups, or [...] medical care, and heating? Patient declined 06/01/2024 [facility] - Occupational Stress Questionnaire Answer Date Recorded [...] any time in the past 12 m [facility], were you homeless or living in a usp (including now)? No 06/01/2024 Comments No Sex [...] EDT Procedure Visit [facility] [address] [place] [address] Scout Berman DO [address] [place] [address] documented as of this encounter Visit Diagnoses Not on filedocumented in this encounter Care Teams Water Taxi Driver Relationship Specialty Start Date End Date Gucci Arthur MD [address] [place] [address] PCP - General Family Medicine 02/23/23 documented as of this encounter
--- OUTSIDE RECORDS SUMMARY | 2025-03-01 14:42 | XMS_ITS | Clinical Summary ---
Author Organization [facility] Address [address] [place] [address] Care Team Providers Care Face Man Name Role Phone Gucci Arthur MD Primary Care Provider [phone] Allergies No known active allergies Medications fluticasone (Flonase) 50 MCG/ACT nasal spray INSTILL 2 SPRAYS INTO EACH NOSTRILL DAILY 3 Active azelastine (Astelin) 0.1 % nasal sprayIndications:C hronic rhinosinusitis Administer 2 sprays into each nostril Daily 30 mL 3 4 Active LORazepam (Ativan) 1 MG tabletIndications: Generalized anxiety disorder Take 1 tablet (1 mg) by mouth 3 (three) times a day as needed for anxiety for up to 20 days 60 tablet 4 Active buPROPion XL (Wellbutrin XL) 300 MG 24 hr tabletIndications: Major depressive disorder, recurrent episode, moderate (HCC) Take 1 tablet (300 mg) by mouth Daily 30 tablet 3 5 Active cephalexin (Keflex) 500 MG capsuleIndications :Folliculitis Take 1 capsule (500 mg) by mouth in the morning and 1 capsule (500 mg) in the evening and 1 capsule (500 mg) before bedtime. Do all this for 7 days. 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 Warned will take 2-3 weeks to notice improvement in mood. Assessment & Plan (06/01/2024 1:51 PM EST): Symptoms much worse and start zoloft. Warned will take 2-3 weeks to notice improvement in mood. Generalized anxiety disorder 06/01/2024 Assessment & Plan (07/15/2024 10:46 AM EST): Symptoms slightly better but still present and increase wellbutrin. Warned will take 2-3 weeks to notice improvement in mood. Use ativan PRN. Assessment & Plan (06/01/2024 1:51 PM EST): Symptoms much worse and start zoloft. Warned will take 2-3 weeks to notice improvement in mood. Use ativan PRN. Annual physical exam 06/01/2024 Chronic rhinosinusitis 06/01/2024 Assessment & Plan (06/01/2024 1:50 PM EST): Continued rhinorrhea and try astelin. Resolved Problems Problem Noted Date Diagnosed Date Resolved Date Acute right flank pain 06/01/202407/15 Assessment & Plan (06/01/2024 1:50 PM EST): Symptoms suggestive UTI and treat. Take cipro for infection and increase water intake and cranberry juice. Use motrin or tylenol for discomfort. Encounters Date Type Department Care Team Description 03/01/2025 11:00 AM EDT Office Visit [facility] [address] [place] [address] Scout Berman, DO Well woman exam with routine gynecological exam; Folliculitis 03/01/2025 Bamboo flowsheet [facility] [address] [place] [address] Scout Berman DO 02/22/2025 Travel 02/16/2025 Orders Only [facility] [address] [place] [address] [place] [address] Mary Jo Jamil MA from Last 3 Months Family History Medical History Relation Name Comments Diabetes Father Douglas Diabetes Mother's Brother Eron Relation Name Status Comments Father Douglas Mother's Brother Eron Social History Tobacco Use Types Packs/Day Years Used Date Smoking Tobacco: Former Cigarettes Smokeless Tobacco: Never Tobacco Cessation:Counseling Given: Not Answered Alcohol Use Standard Drinks/Week Comments Yes 3 [...] often do you attend chur ch or jehovah's witness services? Never 06/01/2024 Do you belong to any clubs o r organizations such as gnosticism groups, unions, fraternal or athletic groups, or [...] medical care, and heating? Patient declined 06/01/2024 [facility] - Occupational Stress Questionnaire Answer Date [...] any time in the past 12 m [facility], were you homeless or living in a alf (including now)? No 06/01/2024 Comments No Sex and Gender Information Value Date Recorded Sex Assigned at Female 02/16/2023 8:45 AM EDT Legal Sex Female 11:47 PM EDT Gender Identity Female 02/16/2023 8:45 AM EDT Sexual Orientation Not on file Last Filed Vital Signs Vital Sign Reading Time Taken Comments Blood Pressure 100/68 03/01/2025 10:55 AM EDT Pulse 84 07/15/2024 10:33 AM EST Temperature 36.6 C (97.8 F) 07/15/2024 10:33 AM EST Respiratory Rate 20 07/15/2024 10:33 AM EST Oxygen Saturation 99% 07/15/2024 10:33 AM EST Inhaled Oxygen Concentration - - Weight 63.1 kg (139 lb 1.9 oz) 03/01/2025 10:55 AM EDT Height 157.5 cm (5' 2 ) 07/15/2024 10:33 AM EST Body Mass Index 25.45 07/15/2024 10:33 AM EST Plan of Treatment Upcoming Encounters Date Type Department Care Team (Late st Contact Info) Description 03/06/2026 9:00 AM EDT Procedure Visit [facility] [address] [place] [address] Scout Berman DO [address] [place] [address] Health Maintenance Due Date Last Done Comments Influenza Vaccine (#1) 2025 Cervical Cancer Screening 02/28/2029 HPV/Cotest 02/28/2029 Pap Smear 02/28/2029 02/29/2024, 08/13, 08/25/2022, Additional history exists Procedures Procedure Name Priority Date/Time Associated Diagnosis Comments PAP SMEAR Routine 02/29/2024 12:00 AM EDT from Last 3 Months or Most Recently Relevant to Health Maintenance Results * Pap Smear (02/29/2024 12:00 AM EDT) Swab Cervical swab / Unknown Scout Berman DO LAB CYTOLOGY ORDERABLES Final Re sult EXTERNAL LAB from Last 3 Months or Most Recently Relevant to Health Maintenance Insurance [employer] [place] Care Teams Face Man Relationship Specialty Start Date End Date Gucci Arthur MD [address] [place] [address] PCP - General Family Medicine 02/23/23
--- OUTSIDE RECORDS SUMMARY | 2025-03-01 14:46 | XMS_ITS | CCD ---
Author Organization [facility] Care Team Providers Care Pow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 Name Role Phone ANTONELLA ., DR BROWN Admitting Unavailable ANTONELLA ., DR BROWN Attending Unavailable ABEBA, DR GUCCI Mitchell Primary Care Unavailable ANTONELLA ., DR BROWN Consulting Unavailable ABEBA, DR GUCCI Mitchell Admitting Unavailable ABEBA, DR GUCCI Mitchell Attending Unavailable ABEBA, DR GUCCI Mitchell Primary Care Unavailable ABEBA, DR GUCCI Mitchell Consulting Unavailable Gucci Us MD Primary Care Provider KEVIN RENDON Attending Unavailable KEVIN RENDON Attending Unavailable GUCCI US Attending Unavailable ABEBA, GUCCI Attending Unavailable Medications Current Medications Medication Drug Class(es) Dates Sig (Normalized) Sig (Original) azelastine hydrochloride 0.137 mg/actuat metered dose nasal spray (7 sources) Histamine-1 Receptor Antagonist Start: 06-01-2024 take 2 spray(s) nasal route once daily azelastine (Astelin) 0.1 % nasal spray Indications: Chronic rhinosinusitis Administer 2 sprays into each nostril Daily 30 mL 3 06/01/2024 Active 24 hr buPROPion hydrochloride 300 mg extended release oral tablet (11 sources) Aminoketone Start: 07-15-2024 take 1 tablet by mouth once daily buPROPion XL (Wellbutrin XL) 300 MG 24 hr tablet Indications: Major depressive disorder, recurrent episode, moderate (HCC) Take 1 tablet (300 mg) by mouth Daily 30 tablet 3 07/15/2024 Active Start: 07-15-2024 take 1 tablet by chacha th once daily buPROPion XL (Wellbutrin XL) 300 MG 24 hr tablet Indications: Major depressive disorder, recurrent episode, moderate (CMS/HCC) Take 1 tablet (300 mg) by mouth Daily 30 tablet 3 07/15/2024 Active Start: 06-23-2024 End: 07-15-2024 take 1 tablet by mouth once daily buPROPion XL (Wellbutrin XL) 150 MG 24 hr tablet Indications: Major depressive disorder, recurrent episode, moderate (CMS/HCC) Take 1 tablet (150 mg) by mouth Daily 30 tablet 3 06/23/2024 07/15/2024 Discontinued (Reorder) take 1 tablet by chacha th every twenty-four hours in the morning buPROPion XL (Wellbutrin XL) 300 MG 24 hr tablet Take 300 mg by mouth in the morning. Active cetirizine hydrochloride 10 mg oral tablet (4 sources) Histamine-1 Receptor Antagonist Start: 12-27-2022 End: 06-01-2024 take 1 tablet by mouth in the morning cetirizine (ZyrTEC) 10 MG tablet Take 10 mg by mouth in the morning. 12/27/2022 06/01/2024 Discontinued ciprofloxacin 500 mg oral tablet (3 sources) Quinolone Antimicrobial Start: 06-01-2024 End: 06-08-2024 take 1 tablet by mouth in the morning ciprofloxacin (Cipro) 500 MG tablet Indications: Acute right flank pain Take 1 tablet (500 mg) by mouth in the morning and 1 tablet (500 mg) before bedtime. Do all this for 7 days. 14 tablet 06/01/2024 06/08/2024 Active fluticasone propionate 0.05 mg/actuat metered dose nasal spray (9 sources) Corticosteroid Start: 12-18-2022 take 2 spray(s) nasal route once daily fluticasone (Flonase) 50 MCG/ACT nasal spray INSTILL 2 SPRAYS INTO EACH NOSTRILL DAILY 12/18/2022 Active LORazepam 1 mg oral tablet (11 sources) Benzodiazepine Start: 10-17-2022 End: 06-21-2024 take 1 tablet by mouth three times daily as needed for anxiety LORazepam (Ativan) 1 MG tablet Indications: Generalized anxiety disorder Take 1 tablet (1 mg) by mouth 3 (three) times a day as needed for anxiety for up to 20 days 60 tablet 06/01/2024 Active sertraline 50 mg oral tablet (3 sources) Serotonin Reuptake Inhibitor Start: 06-01-2024 take 1 tablet by mouth once daily sertraline (Zoloft) 50 MG tablet Indications: Major depressive disorder, recurrent episode, moderate (CMS/HCC) Take 1 tablet (50 mg) by mouth Daily 30 tablet 3 06/01/2024 Active Start: 06-01-2024 take 1 tablet by chacha once daily sertraline (Zoloft) 50 MG tablet Indications: Major depressive disorder, recurrent episode, moderate (CMS/HCC) Take 1 tablet (50 mg) by mouth Daily 30 tablet 3 06/01/2024 Active Problems Active Problems Problem Classification Problem Date Documented Da te Episodic/Chronic Anxiety disorders (12 sources) Generalized anxiety disorder; Translations: [Generalized anxiety disorder] Onset: 06-01-2024 06-01-2024 Chronic Mood disorders (12 sources) Moderate recurrent major depression; Translations: [Major depressive disorder, recurrent, moderate] Onset: 06-01-2024 06-01-2024 Chronic Other screening for suspected conditions (not mental disorders or infectious disease) (4 sources) Encounter for screening for malignant neoplasm of cervix; Translations: [ENC SCREENING MALIG NEOPLASM CERV] Onset: 08-25-2022 Episodic Other upper respiratory disease (8 sources) Allergic rhinitis due to pollen; Translations: [Allergic rhinitis due to pollen] Onset: 06-01-2024 06-01-2024 Chronic Other upper respiratory infections (9 sources) Chronic sinusitis, unspecified; Translations: [Chronic rhinitis] Onset: 06-01-2024 06-01-2024 Chronic Past or Other Problems Problem Classification Problem Date Documented Da te Episodic/Chronic Abdominal pain (9 sources) Right flank pain; Translations: [Unspecified abdominal pain] Onset: 06-01-2024 Resolved: 07-15-2024 06-01-2024 Episodic Other bone disease and musculoskeletal deformities (8 sources) Osteopenia; Translations: [Other specified disorders of bone density and structure, unspecified site] Onset: 06-01-2024 06-01-2024 Episodic Other skin disorders (8 sources) Hyperhidrosis of palms; Translations: [Primary focal hyperhidrosis, palms] Onset: 06-01-2024 06-01-2024 Episodic Results Test Name Value Interpretation Reference Range Facility [facility] HEMOGLOBIN A1Con 024 Glucose [Mass/Vol] 108 mg/dL [facility] HbA1c (Bld) [Mass fraction] 5.4 % 4.5 - 6.2 % [facility] Comment on above: ADA RECOMMENDED LIMI T 4.0 - 6.0 ADA THERAPEUTIC TARGET < 7.0 ACTION SUGGESTED > 7.0 [facility] IGP,APTIMA HPV,AGE GDLNon AGE GDLN ACOG TESTING Note . [facility] Comment on above: TESTS RESULT FLAG UN ITS REF RANGE LAB Clinician Provided Cytology Information Source.............Cervix;Endocervix No. of containers..01 ThinPrep Vial Age Algo ACOG Ольга... 30-65 FLAG LEGEND: L-Low Normal,H-High Normal,LL-Alert Low,HH-Alert High <-Panic Low,>-Panic High,A-Abnormal,AA-Critical Abnormal Performed at: 01 = [facility] [address] [place] [address] Lilly Morales MD, HPV APTIMA Negative Negative [facility] Comment on above: This nucleic acid am plification test detects fourteen high- risk HPV types (16,18,31,33,35,39,45,51,52,56,58,59,66,68) without differentiation. Performed at: =[facility] [employer] [address] [id number] Email Marketing Intern: Lilly Morales MD, Phone: [phone] Performed at: WB - [facility] [address], [place] [id number] Email Marketing Intern: Lilly Morales MD, Phone: [phone] IGP, APTIMA HPV, RFX 16/18,45 Note . [facility] Comment on above: TESTS RESULT FLAG UN ITS REF RANGE LAB DIAGNOSIS: 02 NEGATIVE FOR INTRAEPITHELIAL LESION OR MALIGNANCY. Specimen adequacy: 02 Satisfactory for evaluation. Endocervical and/or squamous metaplastic cells (endocervical component) are present. Performed by: 02 Vimal Hunter, [employer] Miller (ASCP) . 02 Note: Note 02 The Pap smear is a screening test designed to aid in the detection of premalignant and malignant conditions of the uterine cervix. It is not a diagnostic procedure and should not be used as the sole means of detecting cervical cancer. Both false-positive and false-negative reports do occur. Test Methodology: Note 02 This liquid based ThinPrep(R) pap test was screened with the use of an image guided system. HPV Genotype Reflex Note 02 Criteria not met, HPV Genotype not performed. FLAG LEGEND: L-Low Normal,H-High Normal,LL-Alert Low,HH-Alert High <-Panic Low,>-Panic High,A-Abnormal,AA-Critical Abnormal Performed at: 02 [facility] [address] [place] [address] Lilly Morales MD, BRUSH-SPATULA CERVIX ENDOCERVIX [facility] CBC AUTO DIFFon 10-17-2022 BASO # 0.0 103/ul Normal 0.0-0.1 [facility] Comment on above: Performed By: #### C BC #### [facility] [address] [place] [address] Dr. Tal Harley Basophils/100 WBC (Bld) 0.6 % Normal 0.2-2.0 [facility] Comment on above: Performed By: #### C BC #### [facility] [address] [place] [address] Dr. Tal Harley EO # 0.0 103/ul Normal 0.0-0.7 [facility] Comment on above: Performed By: #### C BC #### [facility] [address] [place] [address] Dr. Tal Harley Eosinophils/100 WBC (Bld) 0.9 % Normal 0.9-7.0 [facility] Comment on above: Performed By: #### C BC #### [facility] [address] [place] [address] Dr. Tal Harley Erythrocyte distribution width (RBC) [Ratio] 12.2 % Normal 11.0-15.0 [facility] Comment on above: Performed By: #### C BC #### [facility] [address] [place] [address] Dr. Tal Harley Hematocrit (Bld) [Volume fraction] 42.3 % Normal 36.0-48.0 [facility] Comment on above: Performed By: #### C BC #### [facility] [address] [place] [address] Dr. Tal Harley Hemoglobin (Bld) [Mass/Vol] 14.0 g/dL Normal 12.0-16.0 [facility] Comment on above: Performed By: #### C BC #### [facility] [address] [place] [address] Dr. Tal Harley IG # 0.01 10e3/ul Normal 0.00-0.03 [facility] Comment on above: Performed By: #### C BC #### [facility] [address] [place] [address] Dr. Tal Harley IG % 0.2 % Normal 0.0-0.5 [facility] Comment on above: Performed By: #### C BC #### [facility] [address] [place] [address] Dr. Tal Harley LYMPH # 1.7 103/ul Normal 1.2-3.8 [facility] Comment on above: Performed By: #### C BC #### [facility] [address] [place] [address] Dr. Tal Harley Lymphocytes/100 WBC (Bld) 36.2 % Normal 20.5-60.0 [facility] Comment on above: Performed By: #### C BC #### [facility] [address] [place] [address] Dr. Tal Harley MANUAL DIFF REQ NO Normal [facility] Comment on above: Performed By: #### C BC #### [facility] [address] [place] [address] Dr. Tal Harley MCH (RBC) [Entitic mass] 31.7 pg Normal 26.7-34.0 [facility] Comment on above: Performed By: #### C BC #### [facility] [address] [place] [address] Dr. Tal Harley MCHC (RBC) [Mass/Vol] 33.1 g/dL Normal 29.9-35.2 [facility] Comment on above: Performed By: #### C BC #### [facility] [address] [place] [address] Dr. Tal Harley MCV (RBC) [Entitic vol] 95.7 fL Normal 81.0-99.0 [facility] Comment on above: Performed By: #### C BC #### [facility] [address] [place] [address] Dr. Tal Harley MONO # 0.4 103/ul Normal 0.3-0.8 [facility] Comment on above: Performed By: #### C BC #### [facility] [address] [place] [address] Dr. Tal Harley Monocytes/100 WBC (Bld) 8.9 % Normal 1.7-12.0 [facility] Comment on above: Performed By: #### C BC #### [facility] [address] [place] [address] Dr. Tal Harley NEUT # 2.5 103/ul Normal 1.4-6.5 [facility] Comment on above: Performed By: #### C BC #### [facility] [address] [place] [address] Dr. Tal Harley Neutrophils/100 WBC (Bld) 53.2 % Normal 43.0-75.0 [facility] Comment on above: Performed By: #### C BC #### [facility] [address] [place] [address] Dr. Tal Harley Platelet mean volume (Bld) [Entitic vol] 10.7 fL Normal 9.5-13.5 [facility] Comment on above: Performed By: #### C BC #### [facility] [address] [place] [address] Dr. Tal Harley PLT 236 103/ul Normal 150-450 [facility] Comment on above: Performed By: #### C BC #### [facility] [address] [place] [address] Dr. Tal Harley RBC 4.42 106/ul Normal 4.20-5.40 [facility] Comment on above: Performed By: #### C BC #### [facility] [address] [place] [address] Dr. Tal Harley WBC 4.7 103/ul Normal 4.0-11.0 [facility] Comment on above: Performed By: #### C BC #### [facility] [address] [place] [address] Dr. Tal Harley GLYCOHEMOGLOBIN A1Con 2022 ADA RECOMMENDATION SEE BELOW Normal [facility] Comment on above: Result Comment: ADA RECOMMENDED LIMIT 4.0 - 6.0 ADA THERAPEUTIC TARGET < 7.0 ACTION SUGGESTED > 7.0 Performed By: #### A 1C #### [facility] [address] [place] [address] Dr. Tal Harley Glucose [Mass/Vol] 94 mg/dL Normal [facility] Comment on above: Performed By: #### A 1C #### [facility] [address] [address] [address] Tal Harley HbA1c (Bld) [Mass fraction] 4.9 % Normal 4.5-6.2 [facility] Comment on above: Performed By: #### A 1C #### [facility] [address] [place] [address] Dr. Tal Harley LIPID PROFILEon 10-17-2022 CHOL-HDL RATIO NORM SEE BELOW Normal [facility] Comment on above: Result Comment: 3.3 - 4.4 LOW RISK 4.4 - 7.1 AVERAGE RISK 7.1 - 11.0 MODERATE RISK >11.0 HIGH RISK Performed By: #### L IVER, LIPID, BMP, TSH #### [facility] [address] [place] [address] Dr. Tal Harley Cholesterol [Mass/Vol] 240 mg/dL Critically high <=200 [facility] Comment on above: Performed By: #### L IVER, LIPID, BMP, TSH #### [facility] [address] [address] [address] Tal Harley Cholesterol in HDL [Mass/Vol] 113 mg/dL Critically high 40-60 [facility] Comment on above: Performed By: #### L IVER, LIPID, BMP, TSH #### [facility] [address] [address] [address] Tal Harley Cholesterol in LDL [Mass/Vol] 114.4 mg/dL Normal [facility] Comment on above: Performed By: #### L IVER, LIPID, BMP, TSH #### [facility] [address] [address] [address] Tal Harley Cholesterol.total/Ch olesterol in HDL [Mass ratio] 2.1 {ratio} Normal [facility] Comment on above: Performed By: #### L IVER, LIPID, BMP, TSH #### [facility] [address] [address] [address] Tal Harley HDL NORMAL > or = 60 mg/dl - LO W CARDIOVASCULAR RISK <40 mg/dl - HIGH CARDIOVASCULAR RISK Normal [facility] Comment on above: Performed By: #### L IVER, LIPID, BMP, TSH #### [facility] [address] [address] [address] Tal Harley LDL CALC NORMAL SEE BELOW Normal [facility] Comment on above: Result Comment: <100 mg/dl OPTIMAL 100 - 129 mg/dl NEAR OR ABOVE OPTIMAL 130 - 159 mg/dl BORDERLINE HIGH 160 - 189 mg/dl HIGH >190 mg/dl VERY HIGH Performed By: #### L IVER, LIPID, BMP, TSH #### [facility] [address] [address] [address] Tal Harley Triglyceride [Mass/Vol] 63 mg/dL Normal <=150 [facility] Comment on above: Performed By: #### L IVER, LIPID, BMP, TSH #### [facility] [address] [place] [address] Dr. Tal Harley VLDL CALC 12.6 mg/dL Normal [facility] Comment on above: Performed By: #### L IVER, LIPID, BMP, TSH #### [facility] [address] [place] [address] Dr. Tal Harley LIVER PROFILEon 10-17-2022 Albumin [Mass/Vol] 4.4 g/dL Normal 3.4-5.0 [facility] Comment on above: Performed By: #### L IVER, LIPID, BMP, TSH #### [facility] [address] [address] [address] Tal Harley Albumin/Globulin [Mass ratio] 1.4 {ratio} Normal [facility] Comment on above: Performed By: #### L IVER, LIPID, BMP, TSH #### [facility] [address] [place] [address] Dr. Tal Harley ALP [Catalytic activity/Vol] 63 U/L Normal 46-116 [facility] Comment on above: Performed By: #### L IVER, LIPID, BMP, TSH #### [facility] [address] [place] [address] Dr. Tal Harley ALT [Catalytic activity/Vol] 20 U/L Normal 14-59 [facility] Comment on above: Performed By: #### L IVER, LIPID, BMP, TSH #### [facility] [address] [address] [address] Tal Harley AST [Catalytic activity/Vol] 15 U/L Normal 15-37 [facility] Comment on above: Performed By: #### L IVER, LIPID, BMP, TSH #### [facility] [address] [address] [address] Tal Harley BILI, CONJUGATED 0.1 mg/dL Normal 0.0-0.2 [facility] Comment on above: Performed By: #### L IVER, LIPID, BMP, TSH #### [facility] [address] [place] [address] Dr. Tal Harley Bilirubin [Mass/Vol] 0.5 mg/dL Normal 0.2-1.0 [facility] Comment on above: Performed By: #### L IVER, LIPID, BMP, TSH #### [facility] [address] [place] [address] Dr. Tal Harley Globulin (S) [Mass/Vol] 3.2 g/dL Normal [facility] Comment on above: Performed By: #### L IVER, LIPID, BMP, TSH #### [facility] [address] [place] [address] Dr. Tal Harley Protein [Mass/Vol] 7.6 g/dL Normal 6.4-8.2 [facility] Comment on above: Performed By: #### L IVER, LIPID, BMP, TSH #### [facility] [address] [place] [address] Dr. Tal Harley PROF CHEM 8 (BAS METB)on Anion gap [Moles/Vol] 11.5 mmol/L Normal [facility] Comment on above: Performed By: #### L IVER, LIPID, BMP, TSH #### [facility] [address] [place] [address] Dr. Tal Harley Calcium [Mass/Vol] 9.1 mg/dL Normal 8.5-10.1 [facility] Comment on above: Performed By: #### L IVER, LIPID, BMP, TSH #### [facility] [address] [address] [address] Tal Harley Chloride [Moles/Vol] 102 mmol/L Normal 98-107 [facility] Comment on above: Performed By: #### L IVER, LIPID, BMP, TSH #### [facility] [address] [place] [address] Dr. Tal Harley CO2 [Moles/Vol] 27.5 mmol/L Normal 21.0-32.0 [facility] Comment on above: Performed By: #### L IVER, LIPID, BMP, TSH #### [facility] [address] [place] [address] Dr. Tal Harley Creatinine [Mass/Vol] 0.67 mg/dL Normal 0.55-1.02 [facility] Comment on above: Performed By: #### L IVER, LIPID, BMP, TSH #### [facility] [address] [place] [address] Dr. Tal Harley EGFR-AF PALESTINIAN >60 Normal >=60 [facility] Comment on above: Performed By: #### L IVER, LIPID, BMP, TSH #### [facility] [address] [place] [address] Dr. Tal Harley EGFR-NON AF PALESTINIAN >60 Normal >=60 [facility] Comment on above: Performed By: #### L IVER, LIPID, BMP, TSH #### [facility] [address] [place] [address] Dr. Tal Harley Glucose [Mass/Vol] 105 mg/dL Normal 74-106 [facility] Comment on above: Performed By: #### L IVER, LIPID, BMP, TSH #### [facility] [address] [place] [address] Dr. Tal Harley Potassium [Moles/Vol] 4.0 mmol/L Normal 3.5-5.1 [facility] Comment on above: Performed By: #### L IVER, LIPID, BMP, TSH #### [facility] [address] [address] [address] Tal Harley Sodium [Moles/Vol] 137 mmol/L Normal 136-145 [facility] Comment on above: Performed By: #### L IVER, LIPID, BMP, TSH #### [facility] [address] [address] [address] Tal Harley Urea nitrogen [Mass/Vol] 9.0 mg/dL Normal 7.0-18.0 [facility] Comment on above: Performed By: #### L IVER, LIPID, BMP, TSH #### [facility] [address] [address] [address] Tal Harley Urea nitrogen/Creatinine [Mass ratio] 13.4 mg/mg Normal [facility] Comment on above: Performed By: #### L IVER, LIPID, BMP, TSH #### [facility] [address] [place] [address] Dr. Tal Harley TSHon 10-17-2022 TSH 0.626 uIU/mL Normal 0.358-3.740 [facility] Comment on above: Performed By: #### L IVER, LIPID, BMP, TSH #### [facility] [address] [place] [address] Dr. Tal Harley PAP ACOG PANEL 2: 30 to 65on 09-02-2022 . . Normal [facility] Comment on above: Result Comment: Perf ormed at: [facility] Performed By: #### [id number] #### [facility] [address] [place] [address] Dr. Tal Harley Age Gdln ACOG Testing 30-65 Normal [facility] Comment on above: Performed By: #### [id number] #### [facility] [address] [place] [address] Dr. Tal Harley DIAGNOSIS: Comment Abnormal [facility] Comment on above: Result Comment: EPIT HELIAL CELL ABNORMALITY. ATYPICAL SQUAMOUS CELLS OF UNDETERMINED SIGNIFICANCE (ASC-US). TRICHOMONAS VAGINALIS IS PRESENT. Performed at: [facility] Performed By: #### [id number] #### [facility] [address] [place] [address] Dr. Tal Harley Electronically signed by: Comment Normal [facility] Comment on above: Result Comment: Mehrdad Kendall MD (Charles), Pathologist Performed at: [facility] Performed By: #### [id number] #### [facility] [address] [place] [address] Dr. Tal Harley HPV Aptima Negative Normal Negative [facility] Comment on above: Result Comment: This nucleic acid amplification test detects fourteen high-risk HPV types (16,18,31,33,35,39,45,51,52,56,58,59,66,68) without differentiation. Performed at: =G Performed By: #### [id number] #### [facility] [address] [place] [address] Dr. Tal Harley HPV Genotype Reflex Comment Normal [facility] Comment on above: Result Comment: Crit eria not met, HPV Genotype not performed. Performed at: [facility] Performed By: #### [id number] #### [facility] [address] [place] [address] Dr. Tal Harley Methodology: Comment Normal [facility] Comment on above: Result Comment: This liquid based ThinPrep(R) pap test was screened with the use of an image guided system. Performed at: WB Performed By: #### [id number] #### [facility] [address] [place] [address] Dr. Tal Harley Note: Comment Normal [facility] Comment on above: Result Comment: The Pap smear is a screening test designed to aid in the detection of premalignant and malignant conditions of the uterine cervix. It is not a diagnostic procedure and should not be used as the sole means of detecting cervical cancer. Both false-positive and false-negative reports do occur. . Performed at: WB Performed By: #### [id number] #### [facility] [address] [place] [address] Dr. Tal Harley Pathologist Provided ICD10 Comment Normal [facility] Comment on above: Result Comment: R87. 610, R87.5 Performed at: [facility] Performed By: #### [id number] #### [facility] [address] [address] [address] Tal Harley Performed by: Comment Normal [facility] Comment on above: Result Comment: Aj Obregon, Wood Flour Miller (ASCP) Performed at: [facility] Performed By: #### [id number] #### [facility] [address] [address] [address] Tal Harley Specimen adequacy: Comment Normal [facility] Comment on above: Result Comment: Sati sfactory for evaluation. Endocervical and/or squamous metaplastic cells (endocervical component) are present. Performed at: [facility] Performed By: #### [id number] #### [facility] [address] [address] [address] Tal Harley Urine Cultureon 11-06-2020 Bacteria identified Cx Nom (U) Reason for Exam Urinary frequency Urine ORGANISM: Klebsiella pneumoniae (O:KLEPNE) Mcintyre Count >100,000 Aerobic VIKTORIYA Charge (NUC86) ---- SUSCEPTIBILITY --- ORGANISM: O:KLEPNE ANTIBIOTIC INTERPRETATION VIKTORIYA Amikacin S <16 Ampicillin [...] RESISTANT TO ALL B-LACTAM DRUGS. PERFORMED BY: [place] [id number] PATHOLOGIST COST ACCOUNTING ANALYST MEE RICHARD M.D. [facility] Comment on above: Performed By: #### C UU #### [address] Vital Signs Date Time Vital Sign Value Performing Clinician Faci lity 07-15-2024 10:33-0500 Body height 157.5 cm Gucci Us MD Work Phone: [facility] 07-15-2024 10:33-0500 Body mass index (BMI) [Ratio] 27.44 kg/m2 Gucci Us MD Work Phone: [facility] 07-15-2024 10:33-0500 Body temperature 97.81 [degF] Gucci Us MD Work Phone: [facility] 07-15-2024 10:33-0500 Body weight 68.04 kg Gucci Us MD Work Phone: [facility] 07-15-2024 10:33-0500 Diastolic blood pressure 68 mm[Hg] Gcuci Us MD Work Phone: [facility] 07-15-2024 10:33-0500 Heart rate 84 /min Gucci Us MD Work Phone: [facility] 07-15-2024 10:33-0500 Respiratory rate 20 /min Gucci Us MD Work Phone: [facility] 07-15-2024 10:33-0500 SaO2% (BldA) [Mass fraction] 99 % Gucci Us MD Work Phone: [facility] 07-15-2024 10:33-0500 Systolic blood pressure 110 mm[Hg] Gucci Us MD Work Phone: [facility] 06-01-2024 13:22-0500 Body height 160 cm Gucci Us MD Work Phone: [facility] 06-01-2024 13:22-0500 Body mass index (BMI) [Ratio] 26.04 kg/m2 Gucci Us MD Work Phone: [facility] 06-01-2024 13:22-0500 Body temperature 97.5 [degF] Gucci Us MD Work Phone: [facility] 06-01-2024 13:22-0500 Body weight 66.68 kg Gucci Us MD Work Phone: [facility] 06-01-2024 13:22-0500 Diastolic blood pressure 76 mm[Hg] Gucci Us MD Work Phone: [facility] 06-01-2024 13:22-0500 Heart rate 89 /min Gucci Us MD Work Phone: [facility] 06-01-2024 13:22-0500 Respiratory rate 22 /min Gucci Us MD Work Phone: [facility] 06-01-2024 13:22-0500 SaO2% (BldA) [Mass fraction] 99 % Gucci Us MD Work Phone: [facility] 06-01-2024 13:22-0500 Systolic blood pressure 124 mm[Hg] Gucci Us MD Work Phone: [facility] Encounters Encounter Date Encounter Type Care Provider Facility Start: 03-01-2025 End: 03-01-2025 Bamboo flowsheet Kevin Antonella DO Work Phone: [facility] Start: 03-01-2025 End: 03-01-2025 Bamboo flowsheet Kevin Antonella DO Work Phone: [facility] Start: 07-15-2024 End: 07-15-2024 Bamboo flowsheet Gucci Us MD Work Phone: [facility] Start: 07-15-2024 End: 07-15-2024 Bamboo flowsheet Gucci Us MD Work Phone: [facility] Start: 07-15-2024 End: 07-15-2024 Office outpatient visit 15 minutes Gucci Us MD Work Phone: [facility] Comment on above: Major depressive dis order, recurrent episode, moderate (CMS/HCC) (Primary Dx); Generalized anxiety disorder (CMS/HCC) Start: 07-15-2024 End: 07-15-2024 ambulatory GUCCI US Not Available Start: 06-01-2024 End: 06-01-2024 Bamboo flowsheet Gucci Us MD Work Phone: [facility] Start: 06-01-2024 End: 06-01-2024 Bamboo flowsheet Gucci Us MD Work Phone: [facility] Start: 06-01-2024 End: 06-01-2024 Clinisync Result Encounter Gucci Us MD Work Phone: [facility] Unsolicited Start: 06-01-2024 End: 06-01-2024 Office outpatient visit 25 minutes Gucci Us MD Work Phone: [facility] Comment on above: Major depressive dis order, recurrent episode, moderate (CMS/HCC) (Primary Dx); Generalized anxiety disorder (CMS/HCC); Acute right flank pain; Annual physical exam; Chronic rhinosinusitis Start: 06-01-2024 End: 06-01-2024 Patient encounter procedure Gucci Us MD Work Phone: [facility] Start: 06-01-2024 End: 06-01-2024 ambulatory GUCCI US Not Available Start: 02-29-2024 End: 03-04-2024 Clinisync Result Encounter Kevin Antonella DO Work Phone: [facility] Unsolicited Start: 02-29-2024 End: 03-04-2024 Clinisync Result Encounter Kevin Antonella DO Work Phone: [facility] Unsolicited Start: 02-29-2024 End: 02-29-2024 ambulatory KEVIN ANTONELLA Not Available Start: 08-31-2023 End: 08-31-2023 ambulatory KVEIN RENDON Not Available Start: 10-26-2022 Encounter for genera l adult medical examination without abnormal findings DR GUCCI US [facility] Start: 10-17-2022 End: 10-18-[address] GUCCI US Facility:[facility] Start: 10-17-2022 End: 10-18-2022 Encounter for general adult medical examination without abnormal findings DR GUCCI US Facility:[facility] Start: 08-25-2022 End: 08-25-[address] KEVIN RENDON . Facility:[facility] Procedures Date Procedure Procedure Detail Performing Clinician Start: 06-01-2024 MLR HEMOGLOBIN A1C Gucci Us MD Work Phone: Start: 02-29-2024 IGP,APTIMA HPV,AGE GDLN Kevin Antonella DO Work Phone: Start: 02-29-2024 Microscopic observat ion [Identifier] in Cervix by Cyto stain Kevin Antonella DO Work Phone: Start: 08-25-2022 Microscopic observat ion [Identifier] in Cervix by Cyto stain Kevin Antonella DO Work Phone: Plan of Treatment Date Care Activity Detail Author Start: 02-28-2029 Screening for malign ant neoplasm of cervix [facility] Start: 08-25-2025 Screening for malign ant neoplasm of cervix [facility] Start: 03-13-2025 Influenza vaccination Influenza Vacc ine (#1) [facility] Start: 03-01-2025 End: 03-01-2025 Patient encounter procedure [facility] Comment on above: Arrived Start: 09-13-2024 End: 09-13-2024 Patient encounter procedure 09/13/2024 9:45 AM EST Office Visit [facility] [address] [place] [phone] Gucci Us MD [address] [place] [phone] [facility] Start: 07-15-2024 End: 07-15-2024 Patient encounter procedure [facility] Comment on above: Arrived Start: 06-01-2024 End: 06-01-2025 Basic metabolic 1998 panel - Serum or Plasma Basic metabolic panel Lab Routine Annual physical exam Expected: 06/01/2024 (Approximate), Expires: 06/01/2025 [facility] Comment on above: Expected: 06/01/2024 (Approximate), Expires: 06/01/2025 Start: 06-01-2024 End: 06-01-2025 CBC W Auto Differential panel - Blood CBC and differential Lab Routine Annual physical exam Expected: 06/01/2024 (Approximate), Expires: 06/01/2025 [facility] Comment on above: Expected: 06/01/2024 (Approximate), Expires: 06/01/2025 Start: 06-01-2024 End: 06-01-2025 Hemoglobin A1c/Hemoglobin.total in Blood Hemoglobin A1c Lab Routine Annual physical exam Expected: 06/01/2024 (Approximate), Expires: 06/01/2025 [facility] Work Phone: Comment on above: Expected: 06/01/2024 (Approximate), Expires: 06/01/2025 Start: 06-01-2024 End: 06-01-2025 Hepatic function 2000 panel - Serum or Plasma Hepatic function panel Lab Routine Annual physical exam Expected: 06/01/2024 (Approximate), Expires: 06/01/2025 [facility] Comment on above: Expected: 06/01/2024 (Approximate), Expires: 06/01/2025 Start: 06-01-2024 End: 06-01-2025 Lipid 1996 panel - Serum or Plasma Lipid panel Lab Routine Annual physical exam Expected: 06/01/2024 (Approximate), Expires: 06/01/2025 [facility] Comment on above: Expected: 06/01/2024 (Approximate), Expires: 06/01/2025 Start: 06-01-2024 End: 06-01-2025 Thyrotropin [Units/volume] in Serum or Plasma TSH Lab Routine Annual physical exam Expected: 06/01/2024 (Approximate), Expires: 06/01/2025 [facility] Comment on above: Expected: 06/01/2024 (Approximate), Expires: 06/01/2025 Start: 06-01-2024 End: 06-01-2024 Patient encounter procedure 06/01/2024 1:15 PM EST Office Visit [facility] [address] [place] [phone] Gucci Us MD [address] [place] [phone] Arrived [facility] Comment on above: Arrived Start: 03-13-2024 Influenza vaccination Influenza Vacc ine (#1) [facility] Start: 2015 Screening for malign ant neoplasm of cervix HPV/Cotest [facility] Payers Date Payer Category Payer Medicaid [id number] 2022 Medicaid [id number] 1985 Unknown [id number] [id number] 1985 Unknown [id number] [id number] 1985 Unknown [id number] [id number] [id number] 1985 Unknown [id number] 2.16.84 [id number] 1985 Unknown [id number] [id number] [id number] 1985 Unknown [id number] [id number] Social History Date Type Detail Facility Start: 02-29-2024 Tobacco smoking status NHIS Ex-smoke r [facility] History of tobacco use Current smoker [facility] History of tobacco use Cigarette Smoker [facility] Start: 02-29-2024 Tobacco use and exposure Smoke less tobacco non-user [facility] Start: 02-29-2024 End: 07-15-2024 Alcoholic beverage intake Current drinker of alcohol (finding) [facility] Start: 02-29-2024 End: 06-01-2024 Alcoholic beverage intake [facility] Start: 06-01-2024 End: 07-15-2024 [id number] Health Literacy [facility] How often do you nee d to have someone help you when you read instructions, pamphlets, or other written material from your doctor or pharmacy [SILS] Never [facility] Do you belong to any clubs or organizations such as restoration groups, unions, fraternal or athletic groups, or school groups? No [facility] Are you now , , , , never or living with a partner? Never [facility] How often to you hav e a drink containing alcohol? 2-4 times a month [facility] How many standard dr inks containing alcohol do you have on a typical day? 1 or 2 [facility] How often do you hav e 6 or more drinks on 1 occasion? Never [facility] Do you feel stress - tense, restless, nervous, or anxious, or unable to sleep at night because your mind is troubled all the time - these days [OSQ] Very much [facility] In the past 12 month s, was there a time when you were not able to pay the mortgage or rent on time? Yes [facility] Start: 02-19-2023 Alcohol Comment Occasional alcohol u se [facility] Start: 1985 Sex assigned at Female [facility] Start: 02-16-2023 Gender identity Identifies as female gender (finding) [facility] History of Present illness Narrative 07-15-2024 Gucci Us MD - 07/15/2024 10:46 AM Theron Us MD - 07/15/2024 10:46 AM Theron Us MD - 07/15/2024 10:30 AM EST Note Date & Type Note Facility 07-15-2024 History of Presen t illness Narrative Associated Problem(s): Generalized anxiety disorder (CMS/HCC) Symptoms slightly better but still present and increase wellbutrin. Warned will take 2-3 weeks to notice improvement in mood. Use ativan PRN. Associated Problem(s): Major depressive disorder, recurrent episode, moderate (CMS/HCC) Symptoms slightly better but still present and increase wellbutrin. Warned will take 2-3 weeks to notice improvement in mood. Images from the original note were not included. Subjective Patient ID: Shabnam Ruffin is a 38 y.o. female who presents for Follow-up (2m). Follow up depression and anxiety. Last visit started zoloft and did not tolerate. Raccoon much worse and not focused. Tired all the time and hard to function. Called several weeks ago and changed to wellbutrin. Overall slightly improved but still with symptoms. Down, sad, and no motivation. Not want to do things or be around others. Anxiety stable. Not as stressed out or overwhelmed. Not as nervous or worry as much. Not as rossi or irritable. Using ativan PRN and helps. Review of Systems Respiratory: Negative for cough, shortness of breath and wheezing. Cardiovascular: Negative for chest pain and palpitations. Gastrointestinal: Negative for abdominal pain, diarrhea, nausea and vomiting. Genitourinary: Negative for dysuria. Objective Physical Exam Constitutional: General: She is not in acute distress. Appearance: Normal appearance. HENT: Head: Normocephalic. Right Ear: Tympanic membrane normal. Left Ear: Tympanic membrane normal. Eyes: Extraocular Movements: Extraocular movements intact. Pupils: Pupils are equal, round, and reactive to light. Cardiovascular: Rate and Rhythm: Normal rate and regular rhythm. Heart sounds: No murmur heard. No friction rub. No gallop. Pulmonary: Effort: Pulmonary effort is normal. Breath sounds: Normal breath sounds. No wheezing, rhonchi or rales. Abdominal: General: Bowel sounds are normal. There is no distension. Palpations: Abdomen is soft. Tenderness: There is no abdominal tenderness. There is no guarding or rebound. Musculoskeletal: Cervical back: Neck supple. Right lower leg: No edema. Left lower leg: No edema. Neurological: Mental Status: She is alert. Assessment/Plan Problem List Items Addressed This Visit Major depressive disorder, recurrent episode, moderate (CMS/HCC) - Primary Symptoms slightly better but still present and increase wellbutrin. Warned will take 2-3 weeks to notice improvement in mood. Relevant Medications buPROPion XL (Wellbutrin XL) 300 MG 24 hr tablet Generalized anxiety disorder (CMS/HCC) Symptoms slightly better but still present and increase wellbutrin. Warned will take 2-3 weeks to notice improvement in mood. Use ativan PRN. documented in this encounter [facility] History of Present illness Narrative 06-01-2024 Gucci Us MD - 06/01/2024 1:51 PM Theron Us MD - 06/01/2024 1:51 PM Theron Us MD - 06/01/2024 1:50 PM Theron Us MD - 06/01/2024 1:50 PM EST Note Date & Type Note Facility 06-01-2024 History of Presen t illness Narrative Associated Problem(s): Generalized anxiety disorder (CMS/HCC) Symptoms much worse and start zoloft. Warned will take 2-3 weeks to notice improvement in mood. Use ativan PRN. Associated Problem(s): Major depressive disorder, recurrent episode, moderate (CMS/HCC) Symptoms much worse and start zoloft. Warned will take 2-3 weeks to notice improvement in mood. Associated Problem(s): Chronic rhinosinusitis Continued rhinorrhea and try astelin. Associated Problem(s): Acute right flank pain Symptoms suggestive UTI and treat. Take cipro for infection and increase water intake and cranberry juice. Use motrin or tylenol for discomfort. Images from the original note were not included. Subjective Patient ID: Shabnam Ruffin is a 38 y.o. female who presents for Follow-up (Med refills) and Flank Pain. Follow up depression and anxiety. Last seen 10/17/22 and not on wellbutrin for over a year. Raccoon like medication wasn't helping. Mood much worse. Down, sad, and no motivation. Not want to do anything or be around others. Not doing things for fun. Nervous and worry all the time. Stressed out and overwhelmed. Thought racing and hard to clear mind. Rossi, irritable and snapping at others. Easily upset and overreact. Using ativan PRN and mild relief. C/o right flank pain for several days. Concerned of UTI and increased frequency and urgency. No pain or burning. Continued rhinorrhea and constant runny nose. Clear, watery discharge. Flonase not helping. Review of Systems Respiratory: Negative for cough, shortness of breath and wheezing. Cardiovascular: Negative for chest pain and palpitations. Gastrointestinal: Negative for abdominal pain, diarrhea, nausea and vomiting. Genitourinary: Negative for dysuria. Objective Physical Exam Constitutional: General: She is not in acute distress. Appearance: Normal appearance. HENT: Head: Normocephalic. Right Ear: Tympanic membrane normal. Left Ear: Tympanic membrane normal. Eyes: Extraocular Movements: Extraocular movements intact. Pupils: Pupils are equal, round, and reactive to light. Cardiovascular: Rate and Rhythm: Normal rate and regular rhythm. Heart sounds: No murmur heard. No friction rub. No gallop. Pulmonary: Effort: Pulmonary effort is normal. Breath sounds: Normal breath sounds. No wheezing, rhonchi or rales. Abdominal: General: Bowel sounds are normal. There is no distension. Palpations: Abdomen is soft. Tenderness: There is no abdominal tenderness. There is no guarding or rebound. Musculoskeletal: Cervical back: Neck supple. Right lower leg: No edema. Left lower leg: No edema. Neurological: Mental Status: She is alert. Assessment/Plan Problem List Items Addressed This Visit Major depressive disorder, recurrent episode, moderate (CMS/HCC) - Primary Symptoms much worse and start zoloft. Warned will take 2-3 weeks to notice improvement in mood. Relevant Medications sertraline (Zoloft) 50 MG tablet Generalized anxiety disorder (CMS/HCC) Symptoms much worse and start zoloft. Warned will take 2-3 weeks to notice improvement in mood. Use ativan PRN. Relevant Medications LORazepam (Ativan) 1 MG tablet Annual physical exam Relevant Orders Hemoglobin A1c Basic metabolic panel CBC and differential Hepatic function panel Lipid panel TSH Acute right flank pain Symptoms suggestive UTI and treat. Take cipro for infection and increase water intake and cranberry juice. Use motrin or tylenol for discomfort. Relevant Medications ciprofloxacin (Cipro) 500 MG tablet Chronic rhinosinusitis Continued rhinorrhea and try astelin. Relevant Medications azelastine (Astelin) 0.1 % nasal spray documented in this encounter [facility] Evaluation note Note Date & Type Note Facility Evaluation note Diagnosis Major depressive disorder, recurrent episode, moderate (CMS/HCC)- Primary Major depressive disorder, recurrent episode, moderate Generalized anxiety disorder (CMS/HCC) Generalized anxiety disorder Acute right flank pain Annual physical exam Routine general medical examination at a health care facility Chronic rhinosinusitis Unspecified sinusitis (chronic) documented in this encounter [facility] Evaluation note Note Date & Type Note Facility Evaluation note Diagnosis Major depressive disorder, recurrent episode, moderate (CMS/HCC)- Primary Major depressive disorder, recurrent episode, moderate Generalized anxiety disorder (CMS/HCC) Generalized anxiety disorder Acute right flank pain Annual physical exam Routine general medical examination at a health care facility Chronic rhinosinusitis Unspecified sinusitis (chronic) Major depressive disorder, recurrent episode, moderate (CMS/HCC)- Primary Major depressive disorder, recurrent episode, moderate Generalized anxiety disorder (CMS/HCC) Generalized anxiety disorder documented in this encounter [facility] Summary Purpose Family History No Family History Records FoundNo Family History Records FoundNo Family History Records Found Advance Directives No Advanced Directives Records FoundNo Advanced Directives Records FoundNo Advanced Directives Records Found Additional Source Comments INFORMATION SOURCE (unrecogn ized section and content) DATE CREATED AUTHOR 11/12/2020 [facility] DATE CREATED AUTHOR AUTHOR'S ORGANIZ ATION 10/26/2022 [facility] DATE CREATED AUTHOR AUTHOR'S ORGANIZ ATION 07/22/2024 [facility] Specialists EPIC Care Teams (unrecognized sec tion and content) 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 Start Date End Date Gucci Us MD [address] [place] [phone] PCP - General Family Medicine 02/23/23 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 Start Date End Date Gucci Us MD [address] [place] [phone] PCP - General Family Medicine 02/23/23 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 Start Date End Date Gucci Us MD [address] [place] [phone] PCP - General Family Medicine 02/23/23 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 Start Date End Date Gucci Us MD [address] [place] [phone] PCP - General Family Medicine 02/23/23 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 Start Date End Date Gucci Us MD [address] [place] [phone] PCP - General Family Medicine 02/23/23 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 [facility]. provides no warranty or guarantee of the accuracy or completeness of information in this document.
[2025-03-06 12:10] LABS: Age Gdln ACOG Testing Note (.); IGP, Aptima HPV, rfx 16/18,45 Note (.)
== END 2025-03-01 14:40 | disposition home or self-care (01) ==
LOC: LAB 14:39
PROVIDERS: PCP Family Medicine; Visit Provider Obstetrics & Gynecology
DX: Z01.419 Encounter for gynecological examination (general) (routine) without abnormal findings (principal)
CPT/HCPCS: 87624; 88175